=== PATIENT | female | born 1930 | race African-American/Black ===

== ENCOUNTER 2019-11-30 11:33 | Inpatient (IN) | payer OTHER ==
--- NOTE | 2019-11-30 12:48 | PDOC ---
History of Present Illness - General Chief Complaint: Wound Stated Complaint: Wound Time Seen by Provider: 11/30/19 12:15 - History of Present Illness Initial Comments: 11/30/19 12:45 Ms. Hill is an 88 yo female w/ pmh of dementia (patient not oriented at baseline ), HTN, HLD, schizophraenia, osteoporosis, arthritis, known pressure ulcer receiving Vancomycin outpatient with PICC line. Patient evaluated outpatient by Dr. Ritter and found to have large ulcer with foul smelling yellow drainage not improving. Patient transferred to hospital following discussion with niece for debridement. Patient otherwise DNR/DNI. Past History - Past Medical History Allergies/Adverse Reactions: Allergies Allergy/AdvReac Type Severity Reaction Status Date / Time Sulfa (Sulfonamide Allergy Verified 11/30/19 12:37 Antibiotics) COPD: No - Psycho Social/Smoking Cessation Hx Smoking History: Unknown if ever smoked Review of Systems - Review of Systems Comments:: 11/30/19 12:47 Unable to obtain further. *Physical Exam - Vital Signs Last Vital Signs Temp Pulse Resp BP Pulse Ox 98.9 F 101 H 20 160/96 100 11/30/19 11:39 11/30/19 11:39 11/30/19 11:39 11/30/19 11:39 11/30/19 11:39 - Physical Exam 11/30/19 12:48 GENERAL: +Patient obese; Not oriented; in no acute distress HEAD: No signs of trauma, normocephalic, atraumatic EYES: PERRLA, EOMI, sclera anicteric, conjunctiva clear ENT: Auricles normal inspection, nares patent, oropharynx clear without exudates. Moist mucosa NECK: Normal ROM, supple, no lymphadenopathy, JVD, or masses LUNGS: No distress, clear to auscultation bilaterally HEART: Regular rate and rhythm, normal S1 and S2, no murmurs, rubs or gallops, peripheral pulses normal and equal bilaterally. ABDOMEN: Soft, nontender, normoactive bowel sounds. No guarding, no rebound. No masses EXTREMITIES: +PICC line noted to RUE. Otherwise normal inspection, normal range of motion, no edema. No clubbing or cyanosis. NEUROLOGICAL: +Unable to assess further. SKIN: +Midline sacral ulcer stage IV. ED Treatment Course - LABORATORY CBC & Chemistry Diagram: 11/30/19 13:00 11/30/19 13:00 Medical Decision Making - Medical Decision Making 11/30/19 13:14 Ms. Hill is an 88 yo female w/ pmh as described who presents for evaluation of large sacral ulcer. Patient evaluated outpatient by vascular who coordinated transfer for debridement. Patient will be worked up for admission and procedure. 11/30/19 14:46 Patient admitted for further care. Discharge - Discharge Information Problems reviewed: Yes Clinical Impression/Diagnosis: Sacral decubitus ulcer Qualifiers: Pressure injury stage: unspecified pressure injury stage Qualified Code(s): L89.159 - Pressure ulcer of sacral region, unspecified stage - Admission Yes - Follow up/Referral Referrals: Connor Ritter DO [Primary Care Provider] - - Patient Discharge Instructions - Post Discharge Activity
--- NOTE | 2019-11-30 13:04 | PDOC ---
Documentation entered by Eloise Silva SCRIBE, acting as scribe for Rei Xie MD. Rei Xie MD: This documentation has been prepared by the Ricardo ramos Sammi, SCRIBE, under my direction and personally reviewed by me in its entirety. I confirm that the documentation accurately reflects all work, treatment, procedures, and medical decision making performed by me. Attending Attestation - Resident Resident Name: Narinder Gilliam - ED Attending Attestation I have performed the following: I have examined & evaluated the patient, The case was reviewed & discussed with the resident, I agree w/resident's findings & plan, Exceptions are as noted - HPI HPI: 11/30/19 13:14 The patient is an 88 year old female, PMH dementia, HTN, HLD, schizophrenia, osteoporosis, arthritis, who presents for evaluation of foul smelling ulder with discharge which is not improving with antibiotic treatment. - Physicial Exam PE: 11/30/19 12:59 Patient is awake, nonverbal, does not follow commands, vital signs are noted Normocephalic and atraumatic CTA RRR abd-sft, nt, nd + stage 4/unstageable sacral decub with dark colored foul smelling discharge - Medical Decision Making 11/30/19 13:03 88-year-old female with multiple comorbidities, advanced dementia, DNR/DNI presents with a worsening stage IV sacral decub with purulent foul-smelling discharge. Patient seen by Dr. Ritter vascular surgery and referred to the ER for debridement. Will obtain wound culture. We will continue with IV vancomycin. Will admit for vascular evaluation. Heart Score/ECG Review - ECG Impressions Comment:: 11/30/19 12:33 normal sinus rhythm normal ECG
[2019-11-30 13:23] LABS: BASO % 0.9 % (0-2.0); EOS % 0.4 % (0-4.5); HEMATOCRIT 38.1 % (32.4-45.2); HEMOGLOBIN 12.3 GM/dL (10.7-15.3); LYMPH % 13.5 % (8-40); MCH 24.9 pg (25.7-33.7); MCHC 32.4 g/dl (32.0-36.0); MEAN CELL VOLUME 76.8 fl (80-96); MEAN PLT VOLUME 7.9 fl (7.5-11.1); MONO % 5.7 % (3.8-10.2); NEUT % 79.5 % (42.8-82.8); PLATELET COUNT 360 K/MM3 (134-434); RBC 4.96 M/mm3 (3.60-5.2); RDW 15.6 % (11.6-15.6); WHITE BLOOD COUNT 10.8 K/mm3 (4.0-10.0)
[2019-11-30 13:36] LABS: INR 1.16 (0.83-1.09); PROTHROMBIN TIME (PATIENT) 13.7 SEC (9.7-13.0)
[2019-11-30 13:53] LABS: ALBUMIN 2.6 g/dl (3.4-5.0); BILIRUBIN,TOTAL 0.4 mg/dL (0.2-1); BLOOD UREA NITROGEN 14.8 mg/dL (7-18); CALCIUM 8.4 mg/dL (8.5-10.1); CREATININE 0.6 mg/dL (0.55-1.3); POTASSIUM 4.7 mmol/L (3.5-5.1); TOT PROT 6.5 g/dl (6.4-8.2)
--- NOTE | 2019-11-30 14:51 | EKG ---
Test Reason : Blood Pressure : / mmHG Vent. Rate : 092 BPM Atrial Rate : 092 BPM P-R Int : 138 ms QRS Dur : 074 ms QT Int : 348 ms P-R-T Axes : 063 011 067 degrees QTc Int : 430 ms POOR DATA QUALITY, INTERPRETATION MAY BE ADVERSELY AFFECTED NORMAL SINUS RHYTHM NORMAL ECG NO PREVIOUS ECGS AVAILABLE Confirmed by JUNE LOPEZ MD ([id number]) on 11/30/2019 2:51:03 PM Referred By: Confirmed By:JUNE LOPEZ MD
--- NOTE | 2019-11-30 15:23 | HP ---
CHIEF COMPLAINT: sacral ulcer PCP: Dr. Nichols HISTORY OF PRESENT ILLNESS: Pt. is an 88 y.o. F w/ PMHx. of Dementia(bed bound, non-verbal at baseline), HTN, HLD, schizophrenia, osteoporosis, arthritis, and decubitus ulcer presents for worsening of her decubitus ulcer. Pt. was seen by Dr. Ritter today and he recommended Pt. to be sent to the hospital for debridement. Pt. had known ulcer and was on Vancomycin Q12H since 11/25/19 for a 21 day course through her PICC line. Per discussion with Pt.s RN at [facility] and senior clinical project manager who states that Dr. Ritter talked to Pt.s niece prior to hospital transfer as Pt. is DNR/DNI and has advanced directives for limited intervention. Per report Pt. was not having any fever, chills or any reported symptoms apart from the foul smelling ulcer that got acute worse over the last 2 days. Per report wound cultures were performed at the facility but antibiotics were not changed. RN did not know the specific results. Pt.s last Vanco level 2 days ago was 15.2. Per RN Pt. has not received evening doses of Vancomycin since the . Pt. did not receive Vancomycin today. ER course was notable for: (1)Consult to Dr. Ritter (2)CBC, CMP, T&S (3) Recent Travel: No PAST MEDICAL HISTORY: As above PAST SURGICAL HISTORY: Unclear Social History: Smoking: Unclear Alcohol: Unclear Drugs: Unclear Allergies Sulfa (Sulfonamide Antibiotics) Allergy (Verified 11/30/19 12:37) HOME MEDICATIONS: Home Medications Medication Instructions Recorded Acetaminophen [Tylenol -] 1,000 mg PO DAILY 11/30/19 Acetaminophen [Tylenol -] 325 mg PO Q6H PRN 11/30/19 Ascorbate Calcium [Vitamin C] 500 mg PO DAILY 11/30/19 Calcium Carbonate/Vitamin D3 1 each PO DAILY 11/30/19 [Calcium 500 + Vit D Caplet] Collagenase Clostridium Hist. 1 applic TP DAILY 11/30/19 [Santyl] Latanoprost 0.005% Eye Drops 1 drop OU DAILY 11/30/19 [Xalatan 0.005% Eye Drops -] Multivitamin [One-Daily 1 each PO DAILY 11/30/19 Multi-Vitamin] Vancomycin HCl 1 gm IV BID 11/30/19 REVIEW OF SYSTEMS As above PHYSICAL EXAMINATION Vital Signs - 24 hr 11/30/19 11:39 Temperature 98.9 F Pulse Rate 101 H Respiratory 20 Rate Blood Pressure 160/96 O2 Sat by Pulse 100 Oximetry (%) GENERAL: Awake, alert, in mild distress. HEAD: Normal with no signs of gross trauma. EYES: Pupils equal, round and reactive to light, sclera anicteric, conjunctiva clear. EARS, NOSE, THROAT: Dry mucous membranes. LUNGS: Breath sounds equal, clear to auscultation bilaterally. No wheezes, and no crackles. No accessory muscle use. HEART: Regular rate and rhythm, normal S1 and S2 without murmur ABDOMEN: Soft, obese, nontender, not distended, normoactive bowel sounds, no guarding, no rebound, no masses. MUSCULOSKELETAL: Stage 4 decubitus ulcer, malodorous and purulent with wound dressing UPPER EXTREMITIES: warm, well-perfused. No cyanosis. No clubbing. No peripheral edema. LOWER EXTREMITIES: 2+ dorsal pedal pulses, warm, well-perfused. No calf tenderness. No peripheral edema. LLE contracted. Babinski Positive NEUROLOGICAL: Non-verbal, Gait not assessed PSYCHIATRIC: Unable to participate, blank stare, winces to pain SKIN: Warm, dry, normal turgor for age, skin break down on back in lumbar region Laboratory Results - last 24 hr 11/30/19 11/30/19 11/30/19 13:00 13:00 13:00 WBC 10.8 H RBC 4.96 Hgb 12.3 Hct 38.1 MCV 76.8 L MCH 24.9 L MCHC 32.4 RDW 15.6 Plt Count 360 MPV 7.9 Absolute Neuts (auto) 8.6 H Neutrophils % 79.5 Lymphocytes % 13.5 Monocytes % 5.7 Eosinophils % 0.4 Basophils % 0.9 Nucleated RBC % 0 PT with INR 13.70 H INR 1.16 H Sodium 140 Potassium 4.7 Chloride 109 H Carbon Dioxide 24 Anion Gap 7 L BUN 14.8 Creatinine 0.6 Est GFR (CKD-EPI)AfAm 95.66 Est GFR (CKD-EPI)NonAf 82.53 Random Glucose 162 H Calcium 8.4 L Total Bilirubin 0.4 AST 36 ALT 30 Alkaline Phosphatase 74 Total Protein 6.5 Albumin 2.6 L Blood Type Antibody Screen 11/30/19 11/30/19 13:00 13:38 WBC RBC Hgb Hct MCV MCH MCHC RDW Plt Count MPV Absolute Neuts (auto) Neutrophils % Lymphocytes % Monocytes % Eosinophils % Basophils % Nucleated RBC % PT with INR INR Sodium Potassium Chloride Carbon Dioxide Anion Gap BUN Creatinine Est GFR (CKD-EPI)AfAm Est GFR (CKD-EPI)NonAf Random Glucose Calcium Total Bilirubin AST ALT Alkaline Phosphatase Total Protein Albumin Blood Type Cancelled Cancelled Antibody Screen Cancelled Cancelled ASSESSMENT/PLAN: Pt. is an 88 y.o. F w/ PMHx. of Dementia(bed bound, non-verbal at baseline), HTN , HLD, schizophrenia, osteoporosis, arthritis, and decubitus ulcer presents for worsening of her decubitus ulcer. Pt. was seen by Dr. Ritter today and he recommended Pt. to be sent to the hospital for debridement. #Stage IV Decubitus Ulcer Wound Care consult to Dr. Ritter appreciated will resume Vancomycin 1Gm BID Last Level was 2 days ago: 15.2, f/u Rpt. level Will start Zosyn to broaden coverage ID Consult to Dr. Tobar appreciated c/w wound care with Santyl Dressing changes and Tylenol given prior to #FEN NS @ 75 monitor electrolytes and replete as needed NPO #DVT Ppx. Hep SQ BID Visit type - Emergency Visit Emergency Visit: Yes ED Registration Date: 11/30/19 Care time: The patient presented to the Emergency Department on the above date and was hospitalized for further evaluation of their emergent condition. - New Patient This patient is new to me today: Yes Date on this admission: 11/30/19 - Critical Care Critical Care patient: No ATTENDING PHYSICIAN STATEMENT I saw and evaluated the patient. I reviewed the resident's note and discussed the case with the resident. I agree with the resident's findings and plan as documented. SUBJECTIVE: OBJECTIVE: ASSESSMENT AND PLAN:
--- NOTE | 2019-11-30 15:58 | PN ---
Teaching Attending Note Name of Resident: Vaughn Branham ATTENDING PHYSICIAN STATEMENT I saw and evaluated the patient. I reviewed the resident's note and discussed the case with the resident. I agree with the resident's findings and plan as documented. SUBJECTIVE:Pt. is an 88 y.o. F w/ PMHx. of Dementia(bed bound, non-verbal at baseline), HTN, HLD, schizophrenia, osteoporosis, arthritis, and decubitus ulcer presents for worsening of her decubitus ulcer. Pt. was seen by Dr. Ritter today and he recommended Pt. to be sent to the hospital for debridement. pt has known ulcer and found to be worsening and wound infected and has been on the iv vanco, and wound got worse, and no improvement, so transferred for the debridement, no symptoms of infection fever , chills reported from the facility, Per report from facility wound cultures were performed at the facility but antibiotics were not changed. RN did not know the specific results. OBJECTIVE: appears comfortable , nad, alert awake, non verbal, withdraws to pain, no response to verbal commands, vss neck supple, no jvd cvs s1/s2/0 chest ctab abd benign ext no c/c/e sacral area stage 4. with foul smelling dc, and ASSESSMENT AND PLAN: stage 4 sacral wound was on vanco, will get the level, and will get the ID on the case, will start iv zosyn, and will fu with ID, will see the vascular surgery for the possible deberidement
[2019-11-30] MEDS ORDERED: PIPERACILLIN/TAZOB 4.5 GM 4.5 GM in DEXTROSE 5%-WATER 100 ML IVPB ONE (16:45)
[2019-11-30 17:10] LABS: PH,URINE 6.5 (5.0-8.0); URINE APPEARANCE CLEAR; URINE BILIRUBIN NEGATIVE (NEGATIVE); URINE COLOR YELLOW; URINE GLUCOSE (UA) NEGATIVE (NEGATIVE); URINE KETONE NEGATIVE (NEGATIVE); URINE LEUK ESTERASE NEGATIVE (NEGATIVE); URINE NITRITE NEGATIVE (NEGATIVE); URINE PROTEIN NEGATIVE (NEGATIVE)
[2019-11-30] MEDS ORDERED: PIPERACILLIN/TAZOBACTAM 4.5 GM VIAL IVPB ONE ×2 (17:47→23:04)
[2019-11-30] MEDS ORDERED: DEXTROSE 5%-WATER 100 ML IVPB ONE ×2 (17:47→23:04)
[2019-11-30] MEDS: SODIUM CHLORIDE 1,000 ML IV SCH (18:19)
[2019-11-30] MEDS: VANCOMYCIN 1 GM in D5W (PRE-DOCKED) 1,000 MG/250 ML IVPB SCH (18:20)
[2019-11-30] MEDS ORDERED: PT OWN MED DRAWER 7, Y5N ONE (18:37)
[2019-11-30 18:51] VITALS: BMI 34.0
[2019-11-30] MEDS: HEPARIN NA (PORCINE) 5,000 UNITS/ML 1ML VIAL SQ SCH (22:17)
[2019-11-30] MEDS: PIPERACILLIN/TAZOB 4.5 GM 4.5 GM in DEXTROSE 5%-WATER 100 ML IVPB SCH (23:09)
[2019-12-01] MEDS ORDERED: DEXTROSE 5%-WATER 100 ML IVPB ONE ×2 (04:54→10:35)
[2019-12-01] MEDS ORDERED: PIPERACILLIN/TAZOBACTAM 4.5 GM VIAL IVPB ONE ×2 (04:54→10:34)
[2019-12-01] MEDS: PIPERACILLIN/TAZOB 4.5 GM 4.5 GM in DEXTROSE 5%-WATER 100 ML IVPB SCH ×4 (05:17→15:11)
[2019-12-01] MEDS: HEPARIN NA (PORCINE) 5,000 UNITS/ML 1ML VIAL SQ SCH ×3 (05:58→21:44)
[2019-12-01] MEDS: VANCOMYCIN 1 GM in D5W (PRE-DOCKED) 1,000 MG/250 ML IVPB SCH ×3 (05:58→15:11)
--- NOTE | 2019-12-01 09:13 | PN ---
Teaching Attending Note Name of Resident: Sarah Juarez ATTENDING PHYSICIAN STATEMENT I saw and evaluated the patient. I reviewed the resident's note and discussed the case with the resident. I agree with the resident's findings and plan as documented. Seen and examined; please see resident note for further historical information. I personally verified all kaminski historical information and exam findings. Personally interpreted all imaging and diagnostics and reviewed appropriate consults. I reviewed all labs and vital signs as per resident note and EMR as documented. I agree with the above assessment and plan unless supplemented by myself in the following. No events reported overnight, patient remains nonverbal secondary to her dementia/schizoaffective disorder and cannot provide a meaningful history. Heart rate is within normal limits as is blood pressure and she is satting 95% on room air.This is her first visit to [facility] and we will obtain old records Could not obtain review of systems secondary to underlying clinical condition. OBJECTIVE: VS, labs, imaging reviewed NAD, AAO, resting comfortably in bed. RRR s1/2 no mgr Normal muscle tone, moves all 5 extremities with normal apparent strength Neck is supple, trachea midline, no cordell LN Lungs CTAB with sym expansion NT ND +BS no cordell organomegaly CN2-12 wnl; no FND NC AT EOMI PERRLA Normal mood, appropriate behavior, euthymic affect No skin breakdown or rashes noted EKG reviewed QTC is 430 with QRS duration 074, normal sinus rhythm. No previous EKGs to compare. Chest x-ray reviewed, no evidence of active pulmonary disease. Assessment and plan: Patient is a 88-year-old female who is bedbound and nonverbal at baseline secondary to her progressive dementia with underlying schizophrenia. She has hypertension, hyperlipidemia, osteoporosis, arthritis, and known decubitus ulcer presenting with worsening of the decubitus ulcer. She was sent in by Dr. Ritter for debridement. She has been on IV vancomycin and was reported to have systemic symptoms of illness such as fever and chills. She is stable overnight and will be going for debridement of her sacral decubitus ulcer, stage IV, with Dr. Ritter and the surgical team and continued on Vanco and Zosyn with ID consult. Pending outpatient/old records Patient is listed as a DNR/DNI but there is no most form completed. We will complete a most form today and have patient's healthcare proxy sign
[2019-12-01 09:47] LABS: BASO % 0.5 % (0-2.0); EOS % 0.6 % (0-4.5); HEMATOCRIT 32.5 % (32.4-45.2); HEMOGLOBIN 10.6 GM/dL (10.7-15.3); LYMPH % 12.8 % (8-40); MCHC 32.6 g/dl (32.0-36.0); MEAN CELL VOLUME 76.6 fl (80-96); MEAN PLT VOLUME 7.9 fl (7.5-11.1); MONO % 6.3 % (3.8-10.2); NEUT % 79.8 % (42.8-82.8); PLATELET COUNT 304 K/MM3 (134-434); RBC 4.24 M/mm3 (3.60-5.2); RDW 15.2 % (11.6-15.6); WHITE BLOOD COUNT 9.1 K/mm3 (4.0-10.0)
[2019-12-01 10:08] LABS: INR 1.22 (0.83-1.09); PROTHROMBIN TIME (PATIENT) 14.4 SEC (9.7-13.0)
[2019-12-01 10:11] LABS: ACTIVATED PTT 34.2 SECONDS (25.2-36.5)
[2019-12-01 10:26] LABS: ALBUMIN 2.2 g/dl (3.4-5.0); BILIRUBIN,TOTAL 0.6 mg/dL (0.2-1); CREATININE 0.6 mg/dL (0.55-1.3); MAGNESIUM 2.1 mg/dL (1.8-2.4); POTASSIUM 3.4 mmol/L (3.5-5.1); TOT PROT 5.5 g/dl (6.4-8.2)
--- NOTE | 2019-12-01 12:03 | SPA.PREOP ---
- PRE-OP NOTE Dx: sacral wound Planned Procedure: debridment of sacral wound Surgeon: Last Vital Signs Temp Pulse Resp BP Pulse Ox 99.1 F 93 H 20 122/82 95 12/01/19 06:19 12/01/19 06:19 12/01/19 06:19 12/01/19 06:19 11/30/19 21:00 Lab Results WBC 9.1 K/mm3 (4.0-10.0) 12/01/19 08:25 RBC 4.24 M/mm3 (3.60-5.2) 12/01/19 08:25 Hgb 10.6 GM/dL (10.7-15.3) L 12/01/19 08:25 Hct 32.5 % (32.4-45.2) 12/01/19 08:25 MCV 76.6 fl (80-96) L 12/01/19 08:25 MCHC 32.6 g/dl (32.0-36.0) 12/01/19 08:25 RDW 15.2 % (11.6-15.6) 12/01/19 08:25 Plt Count 304 K/MM3 (134-434) 12/01/19 08:25 Sodium 140 mmol/L (136-145) 12/01/19 08:25 Potassium 3.4 mmol/L (3.5-5.1) L 12/01/19 08:25 Chloride 106 mmol/L (98-107) 12/01/19 08:25 Carbon Dioxide 26 mmol/L (21-32) 12/01/19 08:25 Anion Gap 7 MMOL/L (8-16) L 12/01/19 08:25 BUN 11.0 mg/dL (7-18) 12/01/19 08:25 Creatinine 0.6 mg/dL (0.55-1.3) 12/01/19 08:25 Random Glucose 153 mg/dL (74-106) H 12/01/19 08:25 Calcium 8.0 mg/dL (8.5-10.1) L 12/01/19 08:25 Blood Type O POSITIVE 11/30/19 14:33 Antibody Screen Negative 11/30/19 14:33 INR 1.22 (0.83-1.09) H 12/01/19 08:25 PE: sacrum with foul odor/necrotic wound at the base A/P; 88 yo female seen by Dr. Ritter in the nursing facility and sent for sacral debridement Pt schedule for debridment 12/02 Npo after midnight D/w Dr. Ritter - ASSESSMENT/PLAN 1. Make NPO after midnight except po meds 2. GI/DVT PPX 3. Medical optimization / clearance 4. Consent to be obtained by surgeon after risks, benefits and alternatives discussed with patient and or Health Care Proxy.
--- NOTE | 2019-12-01 12:26 | PN ---
Progress Note (short form) - Note Progress Note: ID CONSULT DICTATED INFECTED DECUBITUS ULCER R/O SEPSIS SECONDARY TO DECUBITUS SOURCE AWAIT C/S SURGICAL EVALUATION VANCOMYCIN/ ZOSYN
--- NOTE | 2019-12-01 13:15 | CONS ---
INFECTIOUS DISEASE CONSULTATION DATE OF CONSULTATION: DATE OF DICTATION: 12/01/2019 HISTORY: The patient is an 88-year-old female who was evaluated for infected decubitus ulcer. History was obtained from the chart as she suffers from mental illness and dementia. She was at a nursing facility where she was receiving vancomycin for an infected sacral decubitus ulcer. No further details were available regarding cultures. She was seen by Surgery and was advised hospital admission for debridement and IV antibiotic therapy. She suffers from dementia and is not conversant. She was unable to offer any additional details. No reports of any associated fevers or chills. No culture results are available. PAST MEDICAL HISTORY: Positive for dementia, schizophrenia, hypertension, hyperlipidemia, osteoporosis, osteoarthritis. ALLERGIES: SULFA. MEDICATIONS: Include heparin, vancomycin, Zosyn. SOCIAL HISTORY: [facility] resident. Dependent in activities of daily living. SYSTEMS REVIEW: Neurologic: As per HPI. Cardiac: Negative chest pain or palpitations. Respiratory: Negative cough or sputum production. Gastrointestinal: Negative vomiting or diarrhea. Genitourinary: Negative for urinary tract infection. LABORATORY DATA: White count 9.1, hematocrit 32.5, platelet count 304, creatinine 0.6. Urinalysis negative. PHYSICAL EXAMINATION: General: She is awake. Not verbally responsive. Vital Signs: Temperature 99.1, blood pressure 122/82, pulse 93 regular, respirations 20 per minute. HEENT: Sclerae anicteric. Heart: Sounds S1, S2. Lungs: Air entry bilaterally. Abdomen: Soft and nontender. Extremities: Negative for edema. Stage 4 sacral decubitus ulcer with malodorous drainage. IMPRESSION: 1. Infected sacral decubitus ulcer. 2. Rule out sepsis secondary to decubitus source. PLAN: Wound debridement scheduled for tomorrow. Await cultures. Empiric antibiotic coverage with vancomycin and Zosyn. We will follow. Thank you for the kind referral. SIRI GALLARDO M.D. [id number]
[2019-12-01] MEDS: SODIUM CHLORIDE 1,000 ML IV SCH ×2 (15:14→17:57)
--- NOTE | 2019-12-01 16:48 | PN ---
Physical Exam: SUBJECTIVE: Patient seen and examined. Pt is nonverbal. Confirmed photo copy of MOLST form is in chart per nurse report to me. OBJECTIVE: Vital Signs Period Temp Pulse Resp BP Sys/Chapa Pulse Ox Last 24 Hr 98.3 F-99.1 F 77-93 18-20 113-156/57-82 95-98 GENERAL: The patient is awake, alert, and fully oriented, in no acute distress. NECK: supple. LUNGS: Breath sounds equal, clear to auscultation bilaterally, no wheezes, no crackles, no accessory muscle use. HEART: Regular rate and rhythm, S1, S2 without murmur, rub or gallop. ABDOMEN: Soft, nontender, nondistended EXTREMITIES: 2+ pulses, warm, well-perfused, no edema. NEUROLOGICAL: unable to cooperate PSYCH: Somnolent, non-verbal SKIN: sacral decub ulcer stage IV, dressing covering area. Laboratory Results - last 24 hr 11/30/19 12/01/19 12/01/19 15:45 08:25 08:25 WBC 9.1 RBC 4.24 Hgb 10.6 L Hct 32.5 MCV 76.6 L MCH 25.0 L MCHC 32.6 RDW 15.2 Plt Count 304 MPV 7.9 Absolute Neuts (auto) 7.2 Neutrophils % 79.8 Lymphocytes % 12.8 Monocytes % 6.3 Eosinophils % 0.6 Basophils % 0.5 Nucleated RBC % 0 PT with INR 14.40 H INR 1.22 H PTT (Actin FS) 34.2 Sodium Potassium Chloride Carbon Dioxide Anion Gap BUN Creatinine Est GFR (CKD-EPI)AfAm Est GFR (CKD-EPI)NonAf Random Glucose Calcium Phosphorus Magnesium Total Bilirubin AST ALT Alkaline Phosphatase Total Protein Albumin Urine Color Yellow Urine Appearance Clear Urine pH 6.5 Ur Specific [place] 1.018 Urine Protein Negative Urine Glucose (UA) Negative Urine Ketones Negative Urine Blood Negative Urine Nitrite Negative Urine Bilirubin Negative Urine Urobilinogen 1.0 Ur Leukocyte Esterase Negative 12/01/19 08:25 WBC RBC Hgb Hct MCV MCH MCHC RDW Plt Count MPV Absolute Neuts (auto) Neutrophils % Lymphocytes % Monocytes % Eosinophils % Basophils % Nucleated RBC % PT with INR INR PTT (Actin FS) Sodium 140 Potassium 3.4 L Chloride 106 Carbon Dioxide 26 Anion Gap 7 L BUN 11.0 Creatinine 0.6 Est GFR (CKD-EPI)AfAm 95.66 Est GFR (CKD-EPI)NonAf 82.53 Random Glucose 153 H Calcium 8.0 L Phosphorus 3.0 Magnesium 2.1 Total Bilirubin 0.6 AST 14 L ALT 21 Alkaline Phosphatase 58 Total Protein 5.5 L Albumin 2.2 L Urine Color Urine Appearance Urine pH Ur Specific [place] Urine Protein Urine Glucose (UA) Urine Ketones Urine Blood Urine Nitrite Urine Bilirubin Urine Urobilinogen Ur Leukocyte Esterase Active Medications Generic Name Dose Route Start Last Admin Trade Name Frenaheed PRN Reason Stop Dose Admin Heparin Sodium (Porcine) 5,000 unit 11/30/19 22:00 12/01/19 15:14 Heparin - SQ 5,000 unit TID TRISTEN Administration Sodium Chloride 1,000 mls @ 75 mls/hr 11/30/19 17:30 12/01/19 15:14 Normal Saline - IV 75 mls/hr ASDIR TRISTEN Administration Piperacillin Sod/Tazobactam 50 mls @ 100 mls/hr 12/01/19 18:00 Sod 3.375 gm/ Dextrose IVPB Q8H-IV TRISTEN Protocol Vancomycin HCl 1,000 mg in 250 mls @ 200 mls/hr 12/02/19 06:00 Vancomycin (Pre-Docked) IVPB Q24H TRISTEN Protocol ASSESSMENT/PLAN: Pt. is an 88 y.o. F w/ PMHx. of Dementia(bed bound, non-verbal at baseline), HTN , HLD, schizophrenia, osteoporosis, arthritis, and decubitus ulcer presents for worsening of her decubitus ulcer. Pt. was seen by Dr. Ritter today and he recommended Pt. to be sent to the hospital for debridement. #Stage IV Decubitus Ulcer - Wound Care consult to Dr. Ritter appreciated - will continue Vancomycin 1Gm BID, zosyn - Last Level was 2 days ago: 15.2, f/u Rpt. level - ID Consult to Dr. Tobar agreeing with primary team recs. - c/w wound care with Santyl Dressing changes and Tylenol given prior to debridement - Dr. Ritter will be doing surgical debridement tm - NPO after midnight #FEN NS @ 75 monitor electrolytes and replete as needed NPO #DVT Ppx. Hep SQ BID Visit type - Emergency Visit Emergency Visit: Yes ED Registration Date: 11/30/19 Care time: The patient presented to the Emergency Department on the above date and was hospitalized for further evaluation of their emergent condition. - New Patient This patient is new to me today: Yes Date on this admission: 12/01/19 - Critical Care Critical Care patient: No - Discharge Referral Referred to [facility] Med [facility] No ATTENDING PHYSICIAN STATEMENT I saw and evaluated the patient. I reviewed the resident's note and discussed the case with the resident. I agree with the resident's findings and plan as documented. SUBJECTIVE: OBJECTIVE: ASSESSMENT AND PLAN:
[2019-12-01] MEDS ORDERED: PIPERACILLIN/TAZOBACTAM 3.375 GM VIAL IVPB ONE (17:08)
[2019-12-01] MEDS ORDERED: DEXTROSE 5%-WATER - 50 ML IVPB ONE (17:08)
[2019-12-01] MEDS: PIPERACILLIN/TAZOB 3.375 GM 3.375 GM in DEXTROSE 5%-WATER - 50 ML IVPB SCH (17:58)
[2019-12-02] MEDS ORDERED: PIPERACILLIN/TAZOBACTAM 3.375 GM VIAL IVPB ONE ×3 (00:15→17:06)
[2019-12-02] MEDS ORDERED: DEXTROSE 5%-WATER - 50 ML IVPB ONE ×3 (00:16→17:06)
[2019-12-02] MEDS: PIPERACILLIN/TAZOB 3.375 GM 3.375 GM in DEXTROSE 5%-WATER - 50 ML IVPB SCH ×3 (01:14→17:16)
[2019-12-02] MEDS: SODIUM CHLORIDE 1,000 ML IV SCH ×2 (04:30→14:32)
[2019-12-02] MEDS: HEPARIN NA (PORCINE) 5,000 UNITS/ML 1ML VIAL SQ SCH ×2 (05:49→23:10)
[2019-12-02] MEDS ORDERED: VANCOMYCIN 1 GRAM (PRE-DOCKED) 1,000 MG/250 ML BAG IVPB SCH (06:00)
--- NOTE | 2019-12-02 07:02 | PN ---
Physical Exam: SUBJECTIVE: Patient seen and examined at bedside. Nonverbal. DNR/DNI per MOLST form copy in chart. OBJECTIVE: Vital Signs Period Temp Pulse Resp BP Sys/Chapa Pulse Ox Last 24 Hr 98.0 F-98.8 F 79-92 18-20 108-143/55-78 98-98 GENERAL: The patient is difficult to arouse, nonverbal NECK: supple. LUNGS: Breath sounds equal, clear to auscultation bilaterally, no wheezes, no crackles, no accessory muscle use. HEART: Regular rate and rhythm, S1, S2 without murmur, rub or gallop. ABDOMEN: Soft, nontender, nondistended. EXTREMITIES: 2+ pulses, warm, well-perfused, no edema. NEUROLOGICAL: unable to assess PSYCH: Normal mood, normal affect. SKIN: Sacral decub stage IV ulcer, dressing applied Laboratory Results - last 24 hr 12/01/19 12/01/19 12/01/19 08:25 08:25 08:25 WBC 9.1 RBC 4.24 Hgb 10.6 L Hct 32.5 MCV 76.6 L MCH 25.0 L MCHC 32.6 RDW 15.2 Plt Count 304 MPV 7.9 Absolute Neuts (auto) 7.2 Neutrophils % 79.8 Lymphocytes % 12.8 Monocytes % 6.3 Eosinophils % 0.6 Basophils % 0.5 Nucleated RBC % 0 PT with INR 14.40 H INR 1.22 H PTT (Actin FS) 34.2 Sodium 140 Potassium 3.4 L Chloride 106 Carbon Dioxide 26 Anion Gap 7 L BUN 11.0 Creatinine 0.6 Est GFR (CKD-EPI)AfAm 95.66 Est GFR (CKD-EPI)NonAf 82.53 Random Glucose 153 H Calcium 8.0 L Phosphorus 3.0 Magnesium 2.1 Total Bilirubin 0.6 AST 14 L ALT 21 Alkaline Phosphatase 58 Total Protein 5.5 L Albumin 2.2 L Active Medications Generic Name Dose Route Start Last Admin Trade Name Freq PRN Reason Stop Dose Admin Heparin Sodium (Porcine) 5,000 unit 11/30/19 22:00 12/02/19 05:49 Heparin - SQ Not Given TID TRISTEN Sodium Chloride 1,000 mls @ 75 mls/hr 11/30/19 17:30 12/02/19 04:30 Normal Saline - IV 75 mls/hr ASDIR TRISTEN Administration Piperacillin Sod/Tazobactam 50 mls @ 100 mls/hr 12/01/19 18:00 12/02/19 01:14 Sod 3.375 gm/ Dextrose IVPB 100 mls/hr Q8H-IV TRISTEN Administration Protocol Vancomycin HCl 1,000 mg in 250 mls @ 200 mls/hr 12/02/19 06:00 12/02/19 05:15 Vancomycin (Pre-Docked) IVPB 200 mls/hr Q24H TRISTEN Administration Protocol ASSESSMENT/PLAN: Pt. is an 88 y.o. F w/ PMHx. of Dementia(bed bound, non-verbal at baseline), HTN , HLD, schizophrenia, osteoporosis, arthritis, and decubitus ulcer presents for worsening of her decubitus ulcer. Pt. was seen by Dr. Ritter today and he recommended Pt. to be sent to the hospital for debridement. 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 Ritter appreciated - will continue Vancomycin 1Gm BID, zosyn - f/u Rpt. level - ID Consult to Dr. Tobar agreeing with primary team recs. - c/w wound care with Santyl Dressing changes and Tylenol given for any fevers - Dr. Ritter to do surgical debridement #FEN NS @ 75 monitor electrolytes and replete as needed NPO #DVT Ppx. Hep SQ BID Visit type - Emergency Visit Emergency Visit: Yes ED Registration Date: 11/30/19 Care time: The patient presented to the Emergency Department on the above date and was hospitalized for further evaluation of their emergent condition. - New Patient This patient is new to me today: No - Critical Care Critical Care patient: No - Discharge Referral Referred to [facility] No ATTENDING PHYSICIAN STATEMENT I saw and evaluated the patient. I reviewed the resident's note and discussed the case with the resident. I agree with the resident's findings and plan as documented. SUBJECTIVE: OBJECTIVE: ASSESSMENT AND PLAN:
[2019-12-02 08:46] LABS: BASO % 0.7 % (0-2.0); HEMATOCRIT 32.4 % (32.4-45.2); HEMOGLOBIN 10.5 GM/dL (10.7-15.3); MCH 25.1 pg (25.7-33.7); MCHC 32.5 g/dl (32.0-36.0); MEAN PLT VOLUME 8.1 fl (7.5-11.1); MONO % 7.8 % (3.8-10.2); NEUT % 73.5 % (42.8-82.8); PLATELET COUNT 292 K/MM3 (134-434); RBC 4.21 M/mm3 (3.60-5.2); WHITE BLOOD COUNT 9.3 K/mm3 (4.0-10.0)
[2019-12-02 09:18] LABS: ALBUMIN 2.1 g/dl (3.4-5.0); BILIRUBIN,TOTAL 0.6 mg/dL (0.2-1); BLOOD UREA NITROGEN 8.7 mg/dL (7-18); CALCIUM 8.3 mg/dL (8.5-10.1); CREATININE 0.6 mg/dL (0.55-1.3); POTASSIUM 3.5 mmol/L (3.5-5.1); TOT PROT 5.6 g/dl (6.4-8.2)
[2019-12-02] MEDS ORDERED: LIDOCAINE HCL 1%, 10 MG/ML (20ML VIAL) ONE ×2 (10:51→11:43)
[2019-12-02] MEDS ORDERED: MIDAZOLAM HCL 2 MG/2 ML SINGLE DOSE VIAL ONE (11:24)
--- NOTE | 2019-12-02 11:33 | PN ---
Teaching Attending Note Name of Resident: Corey Camilo ATTENDING PHYSICIAN STATEMENT I saw and evaluated the patient. I reviewed the resident's note and discussed the case with the resident. I agree with the resident's findings and plan as documented. Seen and examined; please see resident note for further historical information. I personally verified all [place] historical information and exam findings. Personally interpreted all imaging and diagnostics and reviewed appropriate consults. I reviewed all labs and vital signs as per resident note and EMR as documented. I agree with the above assessment and plan unless supplemented by myself in the following. Patient is a 88-year-old female who is bedbound and nonverbal at baseline secondary to her progressive dementia with underlying schizophrenia. She has hypertension, hyperlipidemia, osteoporosis, arthritis, and known decubitus ulcer presenting with worsening of the decubitus ulcer. She was sent in by Dr. Ritter for debridement. She has been on IV vancomycin and was reported to have systemic symptoms of illness such as fever and chills. She is stable overnight and will be going for debridement of her sacral decubitus ulcer, stage IV, with Dr. Ritter and the surgical team and continued on Vanco and Zosyn with ID consult. 10 item review of systems completed and is negative aside from as discussed in the subjective data in my own/the resident documentation. VS, labs, imaging reviewed NAD, AAOx0, resting comfortably in bed. Functional quadriplegia appreciated RRR s1/2 no mgr Normal muscle tone, moves all 5 extremities with normal apparent strength Neck is supple, trachea midline, no cordell LN Lungs CTAB with sym expansion NT ND +BS no cordell organomegaly CN2-12 wnl; no FND NC AT EOMI PERRLA Normal mood, appropriate behavior, euthymic affect No skin breakdown or rashes noted OR records reviewed, wound care recommendations appreciated Assessment and plan: Patient is improved and doing well postoperatively, remains on antibiotics per ID, wound care instructions appreciated. Microbiology is growing out 2 gram- negative bacilli they are non-lactose fermenting and 1 lactose fermenting GNB with no blood or urine growth. No white count, chemistries within normal limits , will work with social work for discharge planning. I agree with resident assessment and plan as documented unless supplemented by myself.
[2019-12-02] MEDS ORDERED: LIDOCAINE HCL 1%, 10 MG/ML (20ML VIAL) NR ONE (11:40)
--- NOTE | 2019-12-02 11:58 | OP ---
Operative Note - Note: Operative Date: 12/02/19 Pre-Operative Diagnosis: STage 4 necrotic sacral ulcer Operation: Excisional Debridement sacral ulcer - skin, subcutanous tissue , muscle. Findings: necrotic tissue sent to path Post-Operative Diagnosis: Same as Pre-op Surgeon: Connor Ritter Anesthesia: Fractional Estimated Blood Loss (mls): 10 Operative Report Dictated: Yes
[2019-12-02] MEDS ORDERED: LACTATED RINGERS SOLUTION 1,000 ML IV SCH (12:15)
--- NOTE | 2019-12-02 18:45 | PN ---
Progress Note, Physician History of Present Illness: AWAKE. NOT CONVERSANT NO ACUTE DISTRESS S/P DEBRIDEMENT, SACRAL DECUBITUS AFEBRILE WBC IMPROVED - Current Medication List Current Medications: Active Medications Fentanyl (Sublimaze Injection -) 25 mcg IVPUSH [id number] PRN PRN Reason: PAIN-PACU ORDER X 4 DOSES ONLY Stop: 12/03/19 12:05 Heparin Sodium (Porcine) (Heparin -) 5,000 unit SQ TID TRISTEN Lactated Ringer's (Lactated Ringers Solution) 1,000 mls @ 75 mls/hr IV ASDIR TRISTEN Sodium Chloride (Normal Saline -) 1,000 mls @ 75 mls/hr IV ASDIR TRISTEN Last Admin: 12/02/19 14:32 Dose: 75 mls/hr Vancomycin HCl (Vancomycin (Pre-Docked)) 1,000 mg in 250 mls @ 200 mls/hr IVPB Q24H TRISTEN; Protocol Piperacillin Sod/Tazobactam (Sod 3.375 gm/ Dextrose) 50 mls @ 100 mls/hr IVPB Q8H-IV TRISTEN; Protocol Last Admin: 12/02/19 17:16 Dose: 100 mls/hr - Objective Vital Signs: Vital Signs Temperature 98.8 F 12/02/19 18:10 Pulse Rate 69 12/02/19 18:10 Respiratory Rate 20 12/02/19 18:10 Blood Pressure 145/67 12/02/19 18:10 O2 Sat by Pulse Oximetry (%) 98 12/02/19 13:30 Constitutional: Yes: No Distress Eyes: Yes: Conjunctiva Clear Cardiovascular: Yes: Regular Rate and Rhythm, S1, S2 Respiratory: Yes: Diminished Gastrointestinal: Yes: Normal Bowel Sounds, Soft Integumentary: Yes: Other (DRESSING IN PLACE) Labs: CBC, BMP 12/02/19 07:10 12/02/19 07:10 INR, PTT INR 1.22 (0.83-1.09) H 12/01/19 08:25 Assessment/Plan S/P DEBRIDEMENT SACRAL DECUBITUS R/O SEPSIS SECONDARY TO DECUBITUS ULCER AWAIT C/S CONTINUE ZOSYN/VANCOMYCIN LOCAL WOUND CARE
[2019-12-03] MEDS ORDERED: PIPERACILLIN/TAZOBACTAM 3.375 GM VIAL IVPB ONE ×3 (01:02→17:47)
[2019-12-03] MEDS ORDERED: DEXTROSE 5%-WATER - 50 ML IVPB ONE ×3 (01:03→17:47)
[2019-12-03] MEDS: PIPERACILLIN/TAZOB 3.375 GM 3.375 GM in DEXTROSE 5%-WATER - 50 ML IVPB SCH ×3 (01:24→17:51)
[2019-12-03] MEDS: SODIUM CHLORIDE 1,000 ML IV SCH (06:02)
[2019-12-03] MEDS: VANCOMYCIN 1 GRAM (PRE-DOCKED) 1,000 MG/250 ML BAG IVPB SCH (06:03)
[2019-12-03] MEDS: HEPARIN NA (PORCINE) 5,000 UNITS/ML 1ML VIAL SQ SCH ×4 (06:03→22:11)
[2019-12-03 07:31] LABS: BASO % 0.5 % (0-2.0); EOS % 1.3 % (0-4.5); HEMOGLOBIN 10.7 GM/dL (10.7-15.3); LYMPH % 14.5 % (8-40); MCH 24.8 pg (25.7-33.7); MCHC 32.4 g/dl (32.0-36.0); MEAN CELL VOLUME 76.7 fl (80-96); MEAN PLT VOLUME 7.7 fl (7.5-11.1); MONO % 6.7 % (3.8-10.2); PLATELET COUNT 318 K/MM3 (134-434); RBC 4.31 M/mm3 (3.60-5.2); RDW 15.6 % (11.6-15.6); WHITE BLOOD COUNT 9.5 K/mm3 (4.0-10.0)
[2019-12-03 08:05] LABS: ALBUMIN 2.2 g/dl (3.4-5.0); BILIRUBIN,TOTAL 0.6 mg/dL (0.2-1); BLOOD UREA NITROGEN 10.8 mg/dL (7-18); CALCIUM 8.5 mg/dL (8.5-10.1); CREATININE 0.7 mg/dL (0.55-1.3); POTASSIUM 3.5 mmol/L (3.5-5.1); TOT PROT 5.7 g/dl (6.4-8.2)
--- NOTE | 2019-12-03 09:25 | PN ---
Physical Exam: SUBJECTIVE: Patient seen and examined; discussed with RN. Pending pathology. No issues reported overnight Cannot obtain complete ROS 2/2 advanced dementia. OBJECTIVE: Vital Signs Period Temp Pulse Resp BP Sys/Chapa Pulse Ox Last 24 Hr 97.9 F-98.8 F 58-84 16-20 90-156/50-88 95-100 GENERAL: The patient is awake, alert, and nonverbal/nonorientated, in no acute distress. HEAD: Normal with no signs of trauma. EYES: PERRL, extraocular movements intact, sclera anicteric, conjunctiva clear. No ptosis. ENT: Ears normal, nares patent, oropharynx clear without exudates, moist mucous membranes. NECK: Trachea midline, full range of motion, supple. LUNGS: Breath sounds equal, clear to auscultation bilaterally, no wheezes, no crackles, no accessory muscle use. HEART: Regular rate and rhythm, S1, S2 without murmur, rub or gallop. ABDOMEN: Soft, nontender, nondistended, normoactive bowel sounds, no guarding, no rebound, no hepatosplenomegaly, no masses. EXTREMITIES: 2+ pulses, warm, well-perfused, no edema. NEUROLOGICAL: Cranial nerves II through XII grossly intact. Normal speech, gait not observed. PSYCH: Normal mood, normal affect. SKIN: Warm, dry, normal turgor, no rashes or lesions noted Laboratory Results - last 24 hr 12/03/19 12/03/19 06:10 06:10 WBC 9.5 RBC 4.31 Hgb 10.7 Hct 33.0 MCV 76.7 L MCH 24.8 L MCHC 32.4 RDW 15.6 Plt Count 318 MPV 7.7 Absolute Neuts (auto) 7.4 Neutrophils % 77.0 Lymphocytes % 14.5 Monocytes % 6.7 Eosinophils % 1.3 Basophils % 0.5 Nucleated RBC % 0 Sodium 146 H Potassium 3.5 Chloride 114 H Carbon Dioxide 26 Anion Gap 6 L BUN 10.8 Creatinine 0.7 Est GFR (CKD-EPI)AfAm 90.93 Est GFR (CKD-EPI)NonAf 78.45 Random Glucose 108 H Calcium 8.5 Total Bilirubin 0.6 AST 15 ALT 17 Alkaline Phosphatase 57 Total Protein 5.7 L Albumin 2.2 L Active Medications Generic Name Dose Route Start Last Admin Trade Name Freq PRN Reason Stop Dose Admin Fentanyl 25 mcg 12/02/19 12:06 Sublimaze Injection - IVPUSH 12/03/19 12:05 [id number] PRN PAIN-PACU ORDER X 4 DOSES ONLY Heparin Sodium (Porcine) 5,000 unit 12/02/19 22:00 12/03/19 06:03 Heparin - SQ 5,000 unit TID TRISTEN Administration Sodium Chloride 1,000 mls @ 75 mls/hr 12/02/19 14:08 12/03/19 06:02 Normal Saline - IV 75 mls/hr ASDIR TRISTEN Administration Vancomycin HCl 1,000 mg in 250 mls @ 200 mls/hr 12/03/19 06:00 12/03/19 06:03 Vancomycin (Pre-Docked) IVPB 200 mls/hr Q24H TRISTEN Administration Protocol Piperacillin Sod/Tazobactam 50 mls @ 100 mls/hr 12/02/19 18:00 12/03/19 01:24 Sod 3.375 gm/ Dextrose IVPB 100 mls/hr Q8H-IV TRISTEN Administration Protocol ASSESSMENT/PLAN: Sepsis is noted to be improved with the patient having improved white count. Slightly hypernatremic and hyperchloremic, will change fluids to LR. Sepsis secondary to cellulitis due to stage IV decubitus ulcer Severe protein calorie malnutrition Advanced dementia, nonverbal at baseline Hypertension Hyperlipidemia Schizophrenia; no issues with agitation Osteoporosis Osteoarthritis Functional Quadraplegia Hyperchloremia, Hyponatremia; mild. Changing IVF recheck BMP in AM. Pending pathology on the necrotic tissue that was taken at the debridement yesterday. Infectious disease continues to follow and recommends continuing with Zosyn and vancomycin alongside wound care. They remain at their neurologic baseline. Will initiate discharge planning. They are a resident of [facility]. We will elucidate the final course of antibiotics required. Likely discharge within 72 hours depending on facility acceptance and trajectory of antibiotics. DNR/I MOLST Completed in chart; HCP info updated. Visit type - Emergency Visit Emergency Visit: No - New Patient This patient is new to me today: No - Critical Care Critical Care patient: No
[2019-12-03] MEDS: LACTATED RINGERS SOLUTION 1,000 ML/1,000 ML INFUS.BAG IV SCH (11:23)
--- NOTE | 2019-12-03 12:23 | PN ---
Progress Note (short form) - Note Progress Note: Anesthesiologist post op note POD#1 S/P I&D of decubitus ulcer under MAC anesthesia . VSS. No apparent post anesthesia complications.
[2019-12-03] MEDS ORDERED: PT OWN MED DRAWER 7, Y5N ONE ×3 (13:13→23:20)
[2019-12-03] MEDS: LATANOPROST 0.005% OPHTH SOLN 2.5ML BOTTLE OU SCH (22:11)
[2019-12-04] MEDS ORDERED: PIPERACILLIN/TAZOBACTAM 3.375 GM VIAL IVPB ONE ×3 (02:11→17:18)
[2019-12-04] MEDS ORDERED: DEXTROSE 5%-WATER - 50 ML IVPB ONE ×3 (02:11→17:18)
[2019-12-04] MEDS: PIPERACILLIN/TAZOB 3.375 GM 3.375 GM in DEXTROSE 5%-WATER - 50 ML IVPB SCH ×3 (02:37→17:47)
[2019-12-04] MEDS: LACTATED RINGERS SOLUTION 1,000 ML/1,000 ML INFUS.BAG IV SCH ×2 (04:45→12:18)
[2019-12-04] MEDS: VANCOMYCIN 1 GRAM (PRE-DOCKED) 1,000 MG/250 ML BAG IVPB SCH (05:57)
[2019-12-04] MEDS: HEPARIN NA (PORCINE) 5,000 UNITS/ML 1ML VIAL SQ SCH ×3 (05:58→22:58)
[2019-12-04 07:21] LABS: BASO % 0.7 % (0-2.0); EOS % 1.1 % (0-4.5); HEMATOCRIT 32.1 % (32.4-45.2); HEMOGLOBIN 10.5 GM/dL (10.7-15.3); LYMPH % 14.9 % (8-40); MCH 25.2 pg (25.7-33.7); MCHC 32.8 g/dl (32.0-36.0); MEAN PLT VOLUME 7.7 fl (7.5-11.1); MONO % 7.1 % (3.8-10.2); NEUT % 76.2 % (42.8-82.8); PLATELET COUNT 297 K/MM3 (134-434); RBC 4.17 M/mm3 (3.60-5.2); RDW 15.5 % (11.6-15.6); WHITE BLOOD COUNT 10.3 K/mm3 (4.0-10.0)
[2019-12-04 07:46] LABS: BLOOD UREA NITROGEN 7.9 mg/dL (7-18); CREATININE 0.6 mg/dL (0.55-1.3); POTASSIUM 3.3 mmol/L (3.5-5.1); PREALBUMIN 9.6 mg/dl (20-40)
[2019-12-04] MEDS ORDERED: DOCUSATE NA 100 MG/10 ML UNIT-DOSE CUPS PO PRN (08:16)
[2019-12-04 08:30] LABS: ERYTHROCYTE SEDIMENTATION RATE 64 mm/hr (0-30)
[2019-12-04] MEDS ORDERED: POTASSIUM CHLORIDE TABS 20 MEQ TABLET.ER (FP) PO ONE (09:00)
--- NOTE | 2019-12-04 09:41 | PN ---
Physical Exam: SUBJECTIVE: Patient seen and examined. No acute events overnight. POD#2 of sacral wound debridement. OBJECTIVE: Vital Signs Period Temp Pulse Resp BP Sys/Chapa Pulse Ox Last 24 Hr 98.8 F-100.1 F 69-83 18-20 98-151/54-76 97 GENERAL: awake, nonverbal NECK: supple. LUNGS: Breath sounds equal, clear to auscultation bilaterally, no wheezes, no crackles, no accessory muscle use. HEART: Regular rate and rhythm, S1, S2 without murmur, rub or gallop. ABDOMEN: Soft, nontender, nondistended. EXTREMITIES: 2+ pulses, warm, well-perfused, no edema. NEUROLOGICAL: unable to assess PSYCH: Normal mood, normal affect. SKIN: Sacral decub stage IV ulcer, dressing applied Laboratory Results - last 24 hr 12/04/19 12/04/19 12/04/19 06:50 06:50 06:50 WBC 10.3 H RBC 4.17 Hgb 10.5 L Hct 32.1 L MCV 77.0 L MCH 25.2 L MCHC 32.8 RDW 15.5 Plt Count 297 MPV 7.7 Absolute Neuts (auto) 7.8 Neutrophils % 76.2 Lymphocytes % 14.9 Monocytes % 7.1 Eosinophils % 1.1 Basophils % 0.7 Nucleated RBC % 0 ESR 64 H Sodium 145 Potassium 3.3 L Chloride 114 H Carbon Dioxide 26 Anion Gap 5 L BUN 7.9 Creatinine 0.6 Est GFR (CKD-EPI)AfAm 94.99 Est GFR (CKD-EPI)NonAf 81.95 Random Glucose 107 H Calcium 8.0 L Iron 35 L TIBC 218 L Iron Saturation 16 L Unsaturated IBC 183 L C-Reactive Protein 4.4 H Prealbumin 9.6 L Active Medications Generic Name Dose Route Start Last Admin Trade Name Freq PRN Reason Stop Dose Admin Acetaminophen 650 mg 12/03/19 14:56 Tylenol - PO Q6H PRN PAIN Docusate Sodium 100 mg 12/04/19 08:16 Colace Liquid - PO DAILY PRN CONSTIPATION Ferrous Sulfate 300 mg 12/04/19 10:00 Feosol PO BIDWM TRISTEN Heparin Sodium (Porcine) 5,000 unit 12/02/19 22:00 12/04/19 05:58 Heparin - SQ 5,000 unit TID TRISTEN Administration Vancomycin HCl 1,000 mg in 250 mls @ 200 mls/hr 12/03/19 06:00 12/04/19 05:57 Vancomycin (Pre-Docked) IVPB 200 mls/hr Q24H TRISTEN Administration Protocol Piperacillin Sod/Tazobactam 50 mls @ 100 mls/hr 12/02/19 18:00 12/04/19 02:37 Sod 3.375 gm/ Dextrose IVPB 100 mls/hr Q8H-IV TRISTEN Administration Protocol Lactated Ringer's 1,000 ml in 1,000 mls @ 60 mls/hr 12/03/19 11:15 12/04/19 04:45 Lactated Ringers Solution IV 60 mls/hr ASDIR TRISTEN Administration Latanoprost 1 drop 12/03/19 22:00 12/03/19 22:11 Xalatan 0.005% Eye Drops - OU 1 drop HS TRISTEN Administration ASSESSMENT/PLAN: 88 y/o/f with PMHx of Dementia (bed bound, non-verbal at baseline), HTN, HLD, schizophrenia, osteoporosis, arthritis, and decubitus ulcer presents for worsening of her decubitus ulcer. POD#2 of sacral wound debridement. 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 Ritter) - POD#2 Excisional Debridement sacral ulcer - skin, subcutanous tissue, muscle - necrotic tissue sent to path lab, awaiting results - Continue Vancomycin 1Gm BID, Zosyn - f/u Rpt. level - ID Consulted (Dr. Tobar) - c/w wound care with Santyl Dressing changes and Tylenol given for any fevers - Blood culture, urine cultures negative to date - Wound culture growing Non Lactose fermenting GNB x2, lactose fermenting negative bacilli x1. pending sensitivities #Iron Deficiency Anemia - Iron studies completed, Iron low - Started on Ferrous Sulfate 300mg PO BIDWM #FEN - LR @ 60mls/hr - monitor electrolytes and replete as needed - Sodium controlled diet - Hypokalemia noted, repleted with Kdur 40meq #DVT Ppx. - Hep SQ BID #Dispo - pending path report for necrotic tissue - Patient comes from [facility] in [place], will return when ready for D/C with proper abx course Visit type - Emergency Visit Emergency Visit: Yes ED Registration Date: 11/30/19 Care time: The patient presented to the Emergency Department on the above date and was hospitalized for further evaluation of their emergent condition. - New Patient This patient is new to me today: Yes Date on this admission: 12/04/19 - Critical Care Critical Care patient: No ATTENDING PHYSICIAN STATEMENT I saw and evaluated the patient. I reviewed the resident's note and discussed the case with the resident. I agree with the resident's findings and plan as documented. SUBJECTIVE: OBJECTIVE: ASSESSMENT AND PLAN:
[2019-12-04] MEDS: ACETAMINOPHEN 325 MG TABLET (FP) PO PRN (12:18)
[2019-12-04] MEDS: FERROUS SO4 300 MG/5 ML ORAL SOLN UNIT DOSE CUPS PO SCH ×2 (12:18→17:48)
[2019-12-04] MEDS: LATANOPROST 0.005% OPHTH SOLN 2.5ML BOTTLE OU SCH (22:59)
[2019-12-05] MEDS ORDERED: DEXTROSE 5%-WATER - 50 ML IVPB ONE ×3 (01:25→18:08)
[2019-12-05] MEDS ORDERED: PIPERACILLIN/TAZOBACTAM 3.375 GM VIAL IVPB ONE ×3 (01:25→18:08)
[2019-12-05] MEDS: PIPERACILLIN/TAZOB 3.375 GM 3.375 GM in DEXTROSE 5%-WATER - 50 ML IVPB SCH ×3 (02:04→18:12)
[2019-12-05 05:50] LABS: HEMATOCRIT 31.1 % (32.4-45.2); HEMOGLOBIN 10.1 GM/dL (10.7-15.3); MCH 24.7 pg (25.7-33.7); MCHC 32.4 g/dl (32.0-36.0); MEAN CELL VOLUME 76.3 fl (80-96); MEAN PLT VOLUME 7.5 fl (7.5-11.1); PLATELET COUNT 288 K/MM3 (134-434); RBC 4.07 M/mm3 (3.60-5.2); RDW 15.3 % (11.6-15.6); WHITE BLOOD COUNT 11.3 K/mm3 (4.0-10.0)
[2019-12-05 06:18] LABS: ALBUMIN 2.1 g/dl (3.4-5.0); BILIRUBIN,TOTAL 0.3 mg/dL (0.2-1); BLOOD UREA NITROGEN 8.9 mg/dL (7-18); CALCIUM 7.9 mg/dL (8.5-10.1); CREATININE 0.6 mg/dL (0.55-1.3); POTASSIUM 3.4 mmol/L (3.5-5.1); TOT PROT 5.3 g/dl (6.4-8.2)
[2019-12-05] MEDS: HEPARIN NA (PORCINE) 5,000 UNITS/ML 1ML VIAL SQ SCH ×3 (07:12→22:12)
[2019-12-05] MEDS ORDERED: POTASSIUM CHLORIDE TABS 20 MEQ TABLET.ER (FP) PO ONE (07:30)
[2019-12-05] MEDS: VANCOMYCIN 1 GRAM (PRE-DOCKED) 1,000 MG/250 ML BAG IVPB SCH (07:49)
[2019-12-05] MEDS ORDERED: PT OWN MED DRAWER 7, Y5N ONE ×2 (10:57→18:15)
[2019-12-05] MEDS: ZINC SULFATE 220 MG CAPSULE (FP) PO SCH (11:44)
[2019-12-05] MEDS: ASCORBIC ACID 250 MG TABLET (FP) PO SCH (11:44)
[2019-12-05] MEDS: FERROUS SO4 300 MG/5 ML ORAL SOLN UNIT DOSE CUPS PO SCH ×2 (11:44→18:16)
[2019-12-05] MEDS: MULTIVITAMINS (DAILY MVI) TABLET (FP) PO SCH (11:45)
[2019-12-05] MEDS: LACTATED RINGERS SOLUTION 1,000 ML/1,000 ML INFUS.BAG IV SCH (13:33)
--- NOTE | 2019-12-05 15:57 | PN ---
Progress Note (short form) - Note Progress Note: 89yo F s/p sacral ulcer debridement. Pt seen and examined at bedside. Pt is nonverbal so unable to give any history. Last Vital Signs Temp Pulse Resp BP Pulse Ox 98.8 F 57 L 20 153/76 98 12/05/19 14:00 12/05/19 14:00 12/05/19 14:00 12/05/19 14:00 12/04/19 21:00 CBC, BMP 12/05/19 05:35 12/05/19 05:35 PE: Gen: A&O x 3 Resp; breathing comfortably Back: sacral decub stage 4 ulcer 8cm x 8cm x 6cm with 2-3 cm undermining, clean serous drainage, no erythema. Problem List - Problems (1) Sacral decubitus ulcer Assessment/Plan: Plan -pt will have vac dressing placed by nursing with black foam -recommend changing MWF -pt should follow up with wound care clinic as outpatient. Please contact vascular team if any acute changes. Code(s): L89.159 - PRESSURE ULCER OF SACRAL REGION, UNSPECIFIED STAGE Qualifiers: Pressure injury stage: unspecified pressure injury stage Qualified Code(s) : L89.159 - Pressure ulcer of sacral region, unspecified stage
--- NOTE | 2019-12-05 15:57 | PN ---
Physical Exam: SUBJECTIVE: Patient seen and examined. No acute events overnight. POD#3 from sacral ulcer debridement. OBJECTIVE: Vital Signs Period Temp Pulse Resp BP Sys/Chapa Pulse Ox Last 24 Hr 98.4 F-99.1 F 57-78 18-20 126-153/50-82 98 GENERAL: awake, nonverbal NECK: supple, trachea midline LUNGS: Breath sounds equal, clear to auscultation bilaterally, no wheezes, no crackles, no accessory muscle use. HEART: Regular rate and rhythm, S1, S2 without murmur, rub or gallop. ABDOMEN: Soft, nontender, nondistended. EXTREMITIES: 2+ pulses, warm, well-perfused, no edema. NEUROLOGICAL: unable to assess PSYCH: Normal mood, normal affect. SKIN: Sacral decub stage IV ulcer, dressing applied Laboratory Results - last 24 hr 12/05/19 12/05/19 12/05/19 05:35 05:35 05:35 WBC 11.3 H RBC 4.07 Hgb 10.1 L Hct 31.1 L MCV 76.3 L MCH 24.7 L MCHC 32.4 RDW 15.3 Plt Count 288 MPV 7.5 Sodium 145 Potassium 3.4 L Chloride 113 H Carbon Dioxide 26 Anion Gap 5 L BUN 8.9 Creatinine 0.6 Est GFR (CKD-EPI)AfAm 94.99 Est GFR (CKD-EPI)NonAf 81.95 Random Glucose 111 H Calcium 7.9 L Magnesium 2.0 Total Bilirubin 0.3 AST 12 L ALT 18 Alkaline Phosphatase 53 Total Protein 5.3 L Albumin 2.1 L Vancomycin Pre-Dose 10.0 L Active Medications Generic Name Dose Route Start Last Admin Trade Name Freq PRN Reason Stop Dose Admin Acetaminophen 650 mg 12/03/19 14:56 12/04/19 12:18 Tylenol - PO 650 mg Q6H PRN Administration PAIN Amino Acids 30 ml 12/05/19 17:30 Prosource No Carb Liquid Pkt PO BID@0800,1730 TRISTEN Ascorbic Acid 250 mg 12/05/19 10:00 12/05/19 11:44 Vitamin C - PO 250 mg DAILY TRISTEN Administration Docusate Sodium 100 mg 12/04/19 08:16 12/04/19 12:16 Colace Liquid - PO 100 mg DAILY PRN Administration CONSTIPATION Ferrous Sulfate 300 mg 12/04/19 10:00 12/05/19 11:44 Feosol PO 300 mg BIDWM TRISTEN Administration Heparin Sodium (Porcine) 5,000 unit 12/02/19 22:00 12/05/19 13:33 Heparin - SQ 5,000 unit TID TRISTEN Administration Vancomycin HCl 1,000 mg in 250 mls @ 200 mls/hr 12/03/19 06:00 12/05/19 07:49 Vancomycin (Pre-Docked) IVPB 200 mls/hr Q24H TRISTEN Administration Protocol Piperacillin Sod/Tazobactam 50 mls @ 100 mls/hr 12/02/19 18:00 12/05/19 11:48 Sod 3.375 gm/ Dextrose IVPB 100 mls/hr Q8H-IV TRISTEN Administration Protocol Lactated Ringer's 1,000 ml in 1,000 mls @ 60 mls/hr 12/03/19 11:15 12/05/19 13:33 Lactated Ringers Solution IV 60 mls/hr ASDIR TRISTEN Administration Latanoprost 1 drop 12/03/19 22:00 12/04/19 22:59 Xalatan 0.005% Eye Drops - OU 1 drop HS TRISTEN Administration Multivitamins/Minerals/Vitamin C 1 tab 12/05/19 10:00 12/05/19 11:45 Tab-A-Vit - PO 1 tab DAILY TRISTEN Administration Zinc Sulfate 220 mg 12/05/19 10:00 12/05/19 11:44 Orazinc - PO 220 mg DAILY TRISTEN Administration ASSESSMENT/PLAN: 88 y/o/f with PMHx of Dementia (bed bound, non-verbal at baseline), HTN, HLD, schizophrenia, osteoporosis, arthritis, and decubitus ulcer presents for worsening of her decubitus ulcer. POD#3 of sacral wound debridement. 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 Ritter) - POD#3 Excisional Debridement sacral ulcer - skin, subcutanous tissue, muscle - necrotic tissue sent to path lab, awaiting results -> per path lab results should be available tomorrow - pt will have vac dressing placed by nursing with black foam - recommend changing MWF - pt should follow up with wound care clinic as outpatient. - Continue Vancomycin 1Gm BID, Zosyn - ID Consulted (Dr. Tobar) - c/w wound care with Santyl Dressing changes and Tylenol given for any fevers - Blood culture, urine cultures negative to date - Wound culture growing Non Lactose fermenting GNB x2, lactose fermenting negative bacilli x1. pending sensitivities #Iron Deficiency Anemia - Iron studies completed, Iron low - Started on Ferrous Sulfate 300mg PO BIDWM #FEN - LR @ 60mls/hr - monitor electrolytes and replete as needed - Sodium controlled diet - Hypokalemia noted, repleted with Kdur 40meq #DVT Ppx. - Hep SQ BID #Dispo - pending path report for necrotic tissue -> per path lab results should be available tomorrow - Patient comes from [facility] in [place], will return when ready for D/C with proper abx course Visit type - Emergency Visit Emergency Visit: Yes ED Registration Date: 11/30/19 Care time: The patient presented to the Emergency Department on the above date and was hospitalized for further evaluation of their emergent condition. - New Patient This patient is new to me today: No - Critical Care Critical Care patient: No ATTENDING PHYSICIAN STATEMENT I saw and evaluated the patient. I reviewed the resident's note and discussed the case with the resident. I agree with the resident's findings and plan as documented. SUBJECTIVE: OBJECTIVE: ASSESSMENT AND PLAN:
[2019-12-05] MEDS: AMINO ACIDS/PROTEIN HYDROLYS 30 ML LIQUID.PKT PO SCH (18:12)
[2019-12-05] MEDS: ACETAMINOPHEN 325 MG TABLET (FP) PO PRN (18:13)
[2019-12-05] MEDS: LATANOPROST 0.005% OPHTH SOLN 2.5ML BOTTLE OU SCH (22:12)
[2019-12-06] MEDS ORDERED: PIPERACILLIN/TAZOBACTAM 3.375 GM VIAL IVPB ONE ×3 (02:40→17:58)
[2019-12-06] MEDS ORDERED: DEXTROSE 5%-WATER - 50 ML IVPB ONE ×3 (02:40→17:58)
[2019-12-06] MEDS: PIPERACILLIN/TAZOB 3.375 GM 3.375 GM in DEXTROSE 5%-WATER - 50 ML IVPB SCH ×3 (03:15→18:01)
[2019-12-06] MEDS: VANCOMYCIN 1 GRAM (PRE-DOCKED) 1,000 MG/250 ML BAG IVPB SCH (06:56)
[2019-12-06] MEDS: HEPARIN NA (PORCINE) 5,000 UNITS/ML 1ML VIAL SQ SCH ×3 (06:56→21:46)
[2019-12-06 08:03] LABS: HEMATOCRIT 31.5 % (32.4-45.2); HEMOGLOBIN 10.3 GM/dL (10.7-15.3); MCH 24.7 pg (25.7-33.7); MCHC 32.6 g/dl (32.0-36.0); MEAN CELL VOLUME 75.9 fl (80-96); PLATELET COUNT 295 K/MM3 (134-434); RBC 4.15 M/mm3 (3.60-5.2); RDW 15.8 % (11.6-15.6); WHITE BLOOD COUNT 11.3 K/mm3 (4.0-10.0)
[2019-12-06 08:33] LABS: BLOOD UREA NITROGEN 8.2 mg/dL (7-18); CALCIUM 8.5 mg/dL (8.5-10.1); CREATININE 0.7 mg/dL (0.55-1.3); POTASSIUM 3.3 mmol/L (3.5-5.1)
[2019-12-06] MEDS ORDERED: POTASSIUM CHLORIDE TABS 20 MEQ TABLET.ER (FP) PO ONE (10:00)
[2019-12-06] MEDS: AMINO ACIDS/PROTEIN HYDROLYS 30 ML LIQUID.PKT PO SCH ×2 (10:10→18:01)
[2019-12-06] MEDS: FERROUS SO4 300 MG/5 ML ORAL SOLN UNIT DOSE CUPS PO SCH ×2 (10:10→18:02)
[2019-12-06] MEDS: ZINC SULFATE 220 MG CAPSULE (FP) PO SCH (10:11)
[2019-12-06] MEDS: MULTIVITAMINS (DAILY MVI) TABLET (FP) PO SCH (10:11)
[2019-12-06] MEDS: ASCORBIC ACID 250 MG TABLET (FP) PO SCH (10:11)
[2019-12-06] MEDS ORDERED: POTASSIUM CHLORIDE ORAL LIQUID 20 MEQ/15 ML PO ONE (10:12)
[2019-12-06] MEDS: LACTATED RINGERS SOLUTION 1,000 ML/1,000 ML INFUS.BAG IV SCH (12:27)
--- NOTE | 2019-12-06 17:09 | PN ---
Progress Note, Physician History of Present Illness: AWAKE. NOT CONVERSANT NO ACUTE DISTRESS S/P DEBRIDEMENT, SACRAL DECUBITUS VAC IN PLACE LOW GRADE TEMP WBC IMPROVED - Current Medication List Current Medications: Active Medications Acetaminophen (Tylenol -) 650 mg PO Q6H PRN PRN Reason: PAIN Last Admin: 12/05/19 18:13 Dose: 650 mg Amino Acids (Prosource No Carb Liquid Pkt) 30 ml PO BID@0800,1730 [facility] Last Admin: 12/06/19 10:10 Dose: 30 ml Ascorbic Acid (Vitamin C -) 250 mg PO DAILY [facility] Last Admin: 12/06/19 10:11 Dose: 250 mg Docusate Sodium (Colace Liquid -) 100 mg PO DAILY PRN PRN Reason: CONSTIPATION Last Admin: 12/04/19 12:16 Dose: 100 mg Ferrous Sulfate (Feosol) 300 mg PO BIDWM [facility] Last Admin: 12/06/19 10:10 Dose: 300 mg Heparin Sodium (Porcine) (Heparin -) 5,000 unit SQ TID [facility] Last Admin: 12/06/19 15:03 Dose: 5,000 unit Vancomycin HCl (Vancomycin (Pre-Docked)) 1,000 mg in 250 mls @ 200 mls/hr IVPB Q24H [facility]; Protocol Last Admin: 12/06/19 06:56 Dose: 200 mls/hr Piperacillin Sod/Tazobactam (Sod 3.375 gm/ Dextrose) 50 mls @ 100 mls/hr IVPB Q8H-IV TRISTEN; Protocol Last Admin: 12/06/19 10:11 Dose: 100 mls/hr Lactated Ringer's (Lactated Ringers Solution) 1,000 ml in 1,000 mls @ 60 mls/ hr IV ASDIR [facility] Last Admin: 12/06/19 12:27 Dose: Not Given Latanoprost (Xalatan 0.005% Eye Drops -) 1 drop OU HS [facility] Last Admin: 12/05/19 22:12 Dose: 1 drop Multivitamins/Minerals/Vitamin C (Tab-A-Vit -) 1 tab PO DAILY [facility] Last Admin: 12/06/19 10:11 Dose: 1 tab Zinc Sulfate (Orazinc -) 220 mg PO DAILY [facility] Last Admin: 12/06/19 10:11 Dose: 220 mg - Objective Vital Signs: Vital Signs Temperature 100.3 F H 12/06/19 13:00 Pulse Rate 81 12/06/19 13:00 Respiratory Rate 20 12/06/19 13:00 Blood Pressure 120/41 L 12/06/19 13:00 O2 Sat by Pulse Oximetry (%) 98 12/05/19 21:00 Constitutional: Yes: No Distress Cardiovascular: Yes: Regular Rate and Rhythm, S1, S2 Respiratory: Yes: CTA Bilaterally Gastrointestinal: Yes: Normal Bowel Sounds, Soft. No: Tenderness Edema: Yes Edema: LLE: 1+, RLE: 1+ Labs: CBC, BMP 12/06/19 07:30 12/06/19 07:30 INR, PTT INR 1.22 (0.83-1.09) H 12/01/19 08:25 Assessment/Plan S/P DEBRIDEMENT SACRAL DECUBITUS R/O SEPSIS SECONDARY TO DECUBITUS ULCER AWAIT FINAL C/S CONTINUE ZOSYN LOCAL WOUND CARE
--- NOTE | 2019-12-06 18:08 | PN ---
Teaching Attending Note Name of Resident: Kalen Hannah ATTENDING PHYSICIAN STATEMENT I saw and evaluated the patient. I reviewed the resident's note and discussed the case with the resident. I agree with the resident's findings and plan as documented. SUBJECTIVE: Non-verbal, unable to participate in medical interview OBJECTIVE: Afebrile, Hemodynamically Stable. Last Vital Signs Temp Pulse Resp BP Pulse Ox 100.3 F H 81 20 120/41 L 98 12/06/19 13:00 12/06/19 13:00 12/06/19 13:00 12/06/19 13:00 12/05/19 21:00 HEENT - Atraumatic Heart - S1, S2, RRR Lungs - clear to auscultation Abdomen - High BMI. Soft, non-tender. Bowel Sounds normal. Extremities - no calf tenderness, no edema. RUE PICC. Laboratory Results - last 24 hr 12/06/19 12/06/19 07:30 07:30 WBC 11.3 H RBC 4.15 Hgb 10.3 L Hct 31.5 L MCV 75.9 L MCH 24.7 L MCHC 32.6 RDW 15.8 H Plt Count 295 MPV 8.0 Sodium 147 H Potassium 3.3 L Chloride 113 H Carbon Dioxide 29 Anion Gap 5 L BUN 8.2 Creatinine 0.7 Est GFR (CKD-EPI)AfAm 90.29 Est GFR (CKD-EPI)NonAf 77.90 Random Glucose 113 H Calcium 8.5 Current Medications Generic Name Dose Route Start Last Admin Trade Name Freq PRN Reason Stop Dose Admin Acetaminophen 650 mg 12/03/19 14:56 12/05/19 18:13 Tylenol - PO 650 mg Q6H PRN Administration PAIN Amino Acids 30 ml 12/05/19 17:30 12/06/19 10:10 Prosource No Carb Liquid Pkt PO 30 ml BID@0800,1730 TRIST[facility] Administration Ascorbic Acid 250 mg 12/05/19 10:12/06/19 10:11 Vitamin C - PO 250 mg DAILY [facility] Administration Docusate Sodium 100 mg 12/04/19 08:16 12/04/19 12:16 Colace Liquid - PO 100 mg DAILY PRN Administration CONSTIPATION Ferrous Sulfate 300 mg 12/04/19 10:00 12/06/19 10:10 Feosol PO 300 mg BIDWM [facility]ST[facility] Administration Heparin Sodium (Porcine) 5,000 unit 12/02/19 22:00 12/06/19 15:03 Heparin - SQ 5,000 unit TID TRIST[facility] Administration Piperacillin Sod/Tazobactam 50 mls @ 100 mls/hr 12/02/19 18:00 12/06/19 10:11 Sod 3.375 gm/ Dextrose IVPB 100 mls/hr Q8H-IV TRISTEN Administration Protocol Lactated Ringer's 1,000 ml in 1,000 mls @ 60 mls/hr 12/03/19 11:15 12/06/19 12:27 Lactated Ringers Solution IV Not Given ASDIR TRISTEN Latanoprost 1 drop 12/03/19 22:00 12/05/19 22:12 Xalatan 0.005% Eye Drops - OU 1 drop HS [facility] Administration Multivitamins/Minerals/Vitamin C 1 tab 12/05/19 10:00 12/06/19 10:11 Tab-A-Vit - PO 1 tab DAILY [facility] Administration Zinc Sulfate 220 mg 12/05/19 10:00 12/06/19 10:11 Orazinc - PO 220 mg DAILY [facility] Administration Home Medications Medication Instructions Recorded Acetaminophen [Tylenol -] 1,000 mg PO DAILY 11/30/19 Acetaminophen [Tylenol -] 325 mg PO Q6H PRN 11/30/19 Ascorbate Calcium [Vitamin C] 500 mg PO DAILY 11/30/19 Calcium Carbonate/Vitamin D3 1 each PO DAILY 11/30/19 [Calcium 500 + Vit D Caplet] Collagenase Clostridium Hist. 1 applic TP DAILY 11/30/19 [Santyl] Latanoprost 0.005% Eye Drops 1 drop OU DAILY 11/30/19 [Xalatan 0.005% Eye Drops -] Multivitamin [One-Daily 1 each PO DAILY 11/30/19 Multi-Vitamin] Vancomycin HCl 1 gm IV BID 11/30/19 ASSESSMENT AND PLAN: 88 year old female with history of Advanced Dementia (bed bound, non-verbal at baseline), HTN, HLD, Schizophrenia, Osteoporosis, and sacral decubitus ulcer presents with ulcer infection. 1. Acute Infection Stage IV Decubitus Ulcer, Tmax 100.4 POD 4 s/p excisional debridement Wound Cx LFNB/NLFNB Continue IV Zosyn via R PICC pending final ID and sensitivity ID following. 2. Functional Quadriplegia sec to Advanced Dementia Fully dependent for ADLs Institutional Resident. 3. Chronic Anemia, iron deficiency - continue Ferrous Sulfate supplementation. 4. Hypokalemia - repleted. DVT Px - Heparin SQ
--- NOTE | 2019-12-06 19:03 | PN ---
Physical Exam: SUBJECTIVE: Patient seen and examined at bedside. No acute events. OBJECTIVE: Vital Signs Period Temp Pulse Resp BP Sys/Chapa Pulse Ox Last 24 Hr 98.5 F-100.3 F 64-82 18-20 120-149/41-79 98 GENERAL: The patient is awake, nonverbal. HEAD: Normal with no signs of trauma. NECK: supple. LUNGS: Breath sounds equal, clear to auscultation bilaterally, no wheezes, no crackles, no accessory muscle use. HEART: Regular rate and rhythm, S1, S2 without murmur, rub or gallop. ABDOMEN: Soft, nontender, nondistended EXTREMITIES: 2+ pulses, no edema. NEUROLOGICAL: nonverbal at baseline SKIN: Warm, dry, wound vac on sacrum draining serosanguinous fluid. Laboratory Results - last 24 hr 12/06/19 12/06/19 07:30 07:30 WBC 11.3 H RBC 4.15 Hgb 10.3 L Hct 31.5 L MCV 75.9 L MCH 24.7 L MCHC 32.6 RDW 15.8 H Plt Count 295 MPV 8.0 Sodium 147 H Potassium 3.3 L Chloride 113 H Carbon Dioxide 29 Anion Gap 5 L BUN 8.2 Creatinine 0.7 Est GFR (CKD-EPI)AfAm 90.29 Est GFR (CKD-EPI)NonAf 77.90 Random Glucose 113 H Calcium 8.5 Active Medications Generic Name Dose Route Start Last Admin Trade Name Freq PRN Reason Stop Dose Admin Acetaminophen 650 mg 12/03/19 14:56 12/05/19 18:13 Tylenol - PO 650 mg Q6H PRN Administration PAIN Amino Acids 30 ml 12/05/19 17:30 12/06/19 18:01 Prosource No Carb Liquid Pkt PO 30 ml BID@0800,1730 [facility] Administration Ascorbic Acid 250 mg 12/05/19 10:00 12/06/19 10:11 Vitamin C - PO 250 mg DAILY [facility] Administration Docusate Sodium 100 mg 12/04/19 08:16 12/04/19 12:16 Colace Liquid - PO 100 mg DAILY PRN Administration CONSTIPATION Ferrous Sulfate 300 mg 12/04/19 10:00 12/06/19 18:02 Feosol PO 300 mg BIDWM [facility]ST[facility] Administration Heparin Sodium (Porcine) 5,000 unit 12/02/19 22:00 12/06/19 15:03 Heparin - SQ 5,000 unit TID [facility] Administration Piperacillin Sod/Tazobactam 50 mls @ 100 mls/hr 12/02/19 18:00 12/06/19 18:01 Sod 3.375 gm/ Dextrose IVPB 100 mls/hr Q8H-IV [facility]ST[facility] Administration Protocol Lactated Ringer's 1,000 ml in 1,000 mls @ 60 mls/hr 12/03/19 11:15 12/06/19 12:27 Lactated Ringers Solution IV Not Given ASDIR [facility] Latanoprost 1 drop 12/03/19 22:00 12/05/19 22:12 Xalatan 0.005% Eye Drops - OU 1 drop HS [facility] Administration Multivitamins/Minerals/Vitamin C 1 tab 12/05/19 10:00 12/06/19 10:11 Tab-A-Vit - PO 1 tab DAILY [facility] Administration Zinc Sulfate 220 mg 12/05/19 10:00 12/06/19 10:11 Orazinc - PO 220 mg DAILY [facility] Administration ASSESSMENT/PLAN: 88 y/o/f with PMHx of Dementia (bed bound, non-verbal at baseline), HTN, HLD, schizophrenia, osteoporosis, arthritis, and decubitus ulcer presents for worsening of her decubitus ulcer. POD#3 of sacral wound debridement. 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 Ritter) - POD#4 Excisional Debridement sacral ulcer - skin, subcutanous tissue, muscle - necrotic tissue sent to path lab, awaiting results - pt with vac dressing placed by nursing with black foam - recommend changing MWF - pt should follow up with wound care clinic as outpatient. - Continue Vancomycin 1Gm BID, Zosyn - ID Consulted (Dr. Tobar) - c/w wound care with Santyl Dressing changes and Tylenol given for any fevers - Blood culture, urine cultures negative to date - Wound culture growing Non Lactose fermenting GNB x2, lactose fermenting negative bacilli x1. pending sensitivities. will d/w Dr. Tobar regarding correction abx to go home with. #Iron Deficiency Anemia - Iron studies completed, Iron low - Started on Ferrous Sulfate 300mg PO BIDWM #FEN - LR @ 60mls/hr - monitor electrolytes and replete as needed - Sodium controlled diet - Hypokalemia noted, repleted with Kdur 40meq #DVT Ppx. - Hep SQ BID #Dispo - pending path report for necrotic tissue -> per path lab results should be available tomorrow - Patient comes from [facility] in [place], will return when ready for D/C with proper abx course Visit type - Emergency Visit Emergency Visit: Yes ED Registration Date: 11/30/19 Care time: The patient presented to the Emergency Department on the above date and was hospitalized for further evaluation of their emergent condition. - New Patient This patient is new to me today: No - Critical Care Critical Care patient: No - Discharge Referral Referred to [facility] Med P.C[facility] No ATTENDING PHYSICIAN STATEMENT I saw and evaluated the patient. I reviewed the resident's note and discussed the case with the resident. I agree with the resident's findings and plan as documented. SUBJECTIVE: OBJECTIVE: ASSESSMENT AND PLAN:
[2019-12-06] MEDS: LATANOPROST 0.005% OPHTH SOLN 2.5ML BOTTLE OU SCH (21:47)
[2019-12-07] MEDS ORDERED: DEXTROSE 5%-WATER - 50 ML IVPB ONE ×3 (02:14→17:10)
[2019-12-07] MEDS ORDERED: PIPERACILLIN/TAZOBACTAM 3.375 GM VIAL IVPB ONE ×3 (02:14→17:10)
[2019-12-07] MEDS: PIPERACILLIN/TAZOB 3.375 GM 3.375 GM in DEXTROSE 5%-WATER - 50 ML IVPB SCH ×3 (02:21→17:14)
[2019-12-07] MEDS: HEPARIN NA (PORCINE) 5,000 UNITS/ML 1ML VIAL SQ SCH ×3 (06:03→23:18)
[2019-12-07] MEDS ORDERED: PT OWN MED DRAWER 7, Y5N ONE ×3 (08:31→17:10)
[2019-12-07] MEDS: AMINO ACIDS/PROTEIN HYDROLYS 30 ML LIQUID.PKT PO SCH ×2 (08:43→17:14)
[2019-12-07] MEDS: FERROUS SO4 300 MG/5 ML ORAL SOLN UNIT DOSE CUPS PO SCH ×2 (10:08→17:14)
[2019-12-07] MEDS: ASCORBIC ACID 250 MG TABLET (FP) PO SCH (10:09)
[2019-12-07] MEDS: ZINC SULFATE 220 MG CAPSULE (FP) PO SCH (10:09)
[2019-12-07] MEDS: MULTIVITAMINS (DAILY MVI) TABLET (FP) PO SCH (10:09)
[2019-12-07] MEDS: ACETAMINOPHEN 325 MG TABLET (FP) PO PRN (11:26)
[2019-12-07] MEDS: LACTATED RINGERS SOLUTION 1,000 ML/1,000 ML INFUS.BAG IV SCH (12:35)
--- NOTE | 2019-12-07 12:46 | PN ---
Progress Note, Physician History of Present Illness: AWAKE. NOT CONVERSANT NO ACUTE DISTRESS S/P DEBRIDEMENT, SACRAL DECUBITUS VAC IN PLACE LOW GRADE TEMP NOTED WBC SL ELEVATED - Current Medication List Current Medications: Active Medications Acetaminophen (Tylenol -) 650 mg PO Q6H PRN PRN Reason: PAIN Last Admin: 12/07/19 11:26 Dose: 650 mg Amino Acids (Prosource No Carb Liquid Pkt) 30 ml PO BID@0800,1730 [facility]S [facility]CLUDE 234 BEDS AT THE [facility] Last Admin: 12/07/19 08:43 Dose: 30 ml Ascorbic Acid (Vitamin C -) 250 mg PO DAILY [facility]S INCLUDE 234 BEDS AT THE [facility] Last Admin: 12/07/19 10:09 Dose: 250 mg Docusate Sodium (Colace Liquid -) 100 mg PO DAILY PRN PRN Reason: CONSTIPATION Last Admin: 12/04/19 12:16 Dose: 100 mg Ferrous Sulfate (Feosol) 300 mg PO BIDWM COUNTS INCLUDE 234 BEDS AT THE [facility] Last Admin: 12/07/19 10:08 Dose: 300 mg Heparin Sodium (Porcine) (Heparin -) 5,000 unit SQ TID [facility]S INCLUDE 234 BEDS AT THE [facility] Last Admin: 12/07/19 06:03 Dose: 5,000 unit Piperacillin Sod/Tazobactam (Sod 3.375 gm/ Dextrose) 50 mls @ 100 mls/hr IVPB Q8H-IV TRISTEN; Protocol Last Admin: 12/07/19 10:09 Dose: 100 mls/hr Lactated Ringer's (Lactated Ringers Solution) 1,000 ml in 1,000 mls @ 60 mls/ hr IV ASDIR COUNTS INCLUDE 234 BEDS AT THE [facility] Last Admin: 12/07/19 12:35 Dose: Not Given Latanoprost (Xalatan 0.005% Eye Drops -) 1 drop OU HS [facility]S INCLUDE 234 BEDS AT THE [facility] Last Admin: 12/06/19 21:47 Dose: 1 drop Multivitamins/Minerals/Vitamin C (Tab-A-Vit -) 1 tab PO DAILY [facility]S [facility]CLUDE 234 BEDS AT THE [facility] Last Admin: 12/07/19 10:09 Dose: 1 tab Zinc Sulfate (Orazinc -) 220 mg PO DAILY [facility]S INCLUDE 234 BEDS AT THE [facility] Last Admin: 12/07/19 10:09 Dose: 220 mg - Objective Vital Signs: Vital Signs Temperature 98.2 F 12/07/19 12:12 Pulse Rate 76 12/07/19 12:12 Respiratory Rate 20 12/07/19 12:12 Blood Pressure 143/49 L 12/07/19 12:12 O2 Sat by Pulse Oximetry (%) 98 12/06/19 09:00 Constitutional: Yes: No Distress Cardiovascular: Yes: Regular Rate and Rhythm, S1, S2 Respiratory: Yes: CTA Bilaterally Gastrointestinal: Yes: Normal Bowel Sounds, Soft. No: Tenderness Edema: Yes Integumentary: Yes: Other (VAC IN PLACE, SACRUM) Labs: CBC, BMP 12/06/19 07:30 12/06/19 07:30 INR, PTT INR 1.22 (0.83-1.09) H 12/01/19 08:25 Assessment/Plan S/P DEBRIDEMENT SACRAL DECUBITUS MAY SUBSTITUTE AUGMENTIN 875MG PO BID X 7D LOCAL WOUND CARE
--- NOTE | 2019-12-07 14:11 | DS ---
Physical Exam: SUBJECTIVE: Patient seen and examined at bedside. No acute events other than 100.3 temp at 3 pm yesterday. OBJECTIVE: Vital Signs Period Temp Pulse Resp BP Sys/Chapa Pulse Ox Last 24 Hr 98.2 F-99.9 F 69-82 18-20 110-143/49-73 PHYSICAL EXAM GENERAL: The patient is awake, nonverbal LUNGS: Breath sounds equal, clear to auscultation bilaterally, no wheezes, no crackles, no accessory muscle use. HEART: Regular rate and rhythm, S1, S2 without murmur, rub or gallop. ABDOMEN: Soft, nontender, nondistended EXTREMITIES: 2+ pulses, warm, well-perfused, no edema. NEUROLOGICAL: Cranial nerves II through XII grossly intact. Normal speech, gait not observed. PSYCH: Normal mood, normal affect. SKIN: stage IV sacral decub attached to wound vac LABS HOSPITAL COURSE: Date of Admission:11/30/19 Pt was admitted for debridement of stage IV sacral decub ulcer and for abx management. Pt came in with a PICC line already on vancomycin. She was debrided on 12/02/[address] Ritter. Pt was continued on vanco and added zosyn for a total of 6 days per ID (Amadou). Pt's wound cultures were contaminated and no sensitivities were obtained. Pt is nonverbal at baseline but will return to [facility] with PO augmentin 875 BID x 7 days per ID recs. She should follow up with wound care, ID, and PCP as per D/C plan. She needs a repeat cbc to be done on thursday as her wbc was still slightly elevated on discharge. She will start using ferrous sulfate and colace for her new home meds. Date of Discharge: 12/07/19 <Corey Camilo - Last Filed: 12/07/19 15:26> Physical Exam: SUBJECTIVE: Patient seen and examined OBJECTIVE: Vital Signs Period Temp Pulse Resp BP Sys/Chapa Pulse Ox Last 24 Hr 98.2 F-99.9 F 67-77 18-20 110-147/46-73 PHYSICAL EXAM GENERAL: The patient is awake, alert, and fully oriented, in no acute distress. HEAD: Normal with no signs of trauma. EYES: PERRL, extraocular movements intact, sclera anicteric, conjunctiva clear. ENT: Ears normal, nares patent, oropharynx clear without exudates, moist mucous membranes. NECK: Trachea midline, full range of motion, supple. LUNGS: Breath sounds equal, clear to auscultation bilaterally, no wheezes, no crackles, no accessory muscle use. HEART: Regular rate and rhythm, S1, S2 without murmur, rub or gallop. ABDOMEN: Soft, nontender, nondistended, normoactive bowel sounds, no guarding, no rebound, no hepatosplenomegaly, no masses. EXTREMITIES: 2+ pulses, warm, well-perfused, no edema. NEUROLOGICAL: Cranial nerves II through XII grossly intact. Normal speech, gait not observed. PSYCH: Normal mood, normal affect. SKIN: Warm, dry, normal turgor, no rashes or lesions noted. LABS Laboratory Results - last 24 hr 12/07/19 12/07/19 13:24 13:24 WBC 13.2 H RBC 4.24 Hgb 10.4 L Hct 32.6 MCV 77.0 L MCH 24.5 L MCHC 31.8 L RDW 15.6 Plt Count 298 MPV 8.0 Absolute Neuts (auto) 11.3 H Neutrophils % 85.3 H Lymphocytes % 8.0 D Monocytes % 4.4 Eosinophils % 1.8 Basophils % 0.5 Nucleated RBC % 0 Sodium 146 H Potassium 3.8 Chloride 113 H Carbon Dioxide 27 Anion Gap 6 L BUN 13.4 Creatinine 0.7 Est GFR (CKD-EPI)AfAm 90.29 Est GFR (CKD-EPI)NonAf 77.90 Random Glucose 124 H Calcium 8.4 L Discharge Medications Medication Instructions Recorded Acetaminophen [Tylenol 1,000 mg PO DAILY 11/30/19 .Extra-Strength -] Acetaminophen [Tylenol .Regular 325 mg PO Q6H PRN 11/30/19 Strength -] Ascorbate Calcium [Vitamin C] 500 mg PO DAILY 11/30/19 Calcium Carbonate/Vitamin D3 1 each PO DAILY 11/30/19 [Calcium 500 + Vit D Caplet] Collagenase Clostridium Hist. 1 applic TP DAILY 11/30/19 [Santyl] Latanoprost 0.005% Eye Drops 1 drop OU DAILY 11/30/19 [Xalatan 0.005% Eye Drops -] Multivitamin [One-Daily 1 each PO DAILY 11/30/19 Multi-Vitamin] Amino Acids/Protein Hydrolys 30 ml PO BID@0800,1730 packet 12/07/19 [Prosource No Carb Liquid Pkt] Amoxicillin/Potassium Clav 1 each PO BID 7 Days #14 tablet 12/07/19 [Augmentin 875-125 Tablet] Ascorbic Acid [Vitamin C -] 250 mg PO DAILY tablet 12/07/19 Docusate Liquid [Colace Liquid -] 100 mg PO DAILY PRN ud 12/07/19 Ferrous Sulfate [Feosol] 300 mg PO DAILY #0 udc 12/07/19 Zinc Sulfate [Orazinc -] 220 mg PO DAILY capsule 12/07/19 Date of Admission:11/30/19 Date of Discharge: 12/07/19 Minutes to complete discharge: 40 <Pritesh Andre - Last Filed: 01/23/20 14:55> Discharge Summary Problems reviewed: Yes - Home Medications Comprehensive Discharge Medication List: Ambulatory Orders Acetaminophen [Tylenol .Extra-Strength -] 1,000 mg PO DAILY 11/30/19 Acetaminophen [Tylenol .Regular Strength -] 325 mg PO Q6H PRN 11/30/19 Ascorbate Calcium [Vitamin C] 500 mg PO DAILY 11/30/19 Calcium Carbonate/Vitamin D3 [Calcium 500 + Vit D Caplet] 1 each PO DAILY 11/30/19 Collagenase Clostridium Hist. [Santyl] 1 applic TP DAILY 11/30/19 Latanoprost 0.005% Eye Drops [Xalatan 0.005% Eye Drops -] 1 drop OU DAILY 11/30/19 Multivitamin [One-Daily Multi-Vitamin] 1 each PO DAILY 11/30/19 Amino Acids/Protein Hydrolys [Prosource No Carb Liquid Pkt] 30 ml PO BID@0800,1730 packet 12/07/19 Amoxicillin/Potassium Clav [Augmentin 875-125 Tablet] 1 each PO BID 7 Days #14 tablet 12/07/19 <Corey Camilo - Last Filed: 12/07/19 15:26> - Home Medications Comprehensive Discharge Medication List: Ambulatory Orders Acetaminophen [Tylenol .Extra-Strength -] 1,000 mg PO DAILY 11/30/19 Acetaminophen [Tylenol .Regular Strength -] 325 mg PO Q6H PRN 11/30/19 Ascorbate Calcium [Vitamin C] 500 mg PO DAILY 11/30/19 Calcium Carbonate/Vitamin D3 [Calcium 500 + Vit D Caplet] 1 each PO DAILY 11/30/19 Collagenase Clostridium Hist. [Santyl] 1 applic TP DAILY 11/30/19 Latanoprost 0.005% Eye Drops [Xalatan 0.005% Eye Drops -] 1 drop OU DAILY 11/30/19 Multivitamin [One-Daily Multi-Vitamin] 1 each PO DAILY 11/30/19 Amino Acids/Protein Hydrolys [Prosource No Carb Liquid Pkt] 30 ml PO BID@0800,1730 packet 12/07/19 Amoxicillin/Potassium Clav [Augmentin 875-125 Tablet] 1 each PO BID 7 Days #14 tablet 12/07/19 Ascorbic Acid [Vitamin C -] 250 mg PO DAILY tablet 12/07/19 Docusate Liquid [Colace Liquid -] 100 mg PO DAILY PRN ud 12/07/19 Ferrous Sulfate [Feosol] 300 mg PO DAILY #0 udc 12/07/19 Zinc Sulfate [Orazinc -] 220 mg PO DAILY capsule 12/07/19 <Pritesh Andre - Last Filed: 01/23/20 14:55> Condition: Good - Instructions Diet, Activity, Other Instructions: You were admitted for debridement (removal of scar tissue) of an infected ulcer on your back. You were placed on antibiotics and will be continuing antibiotics through your IV line in your right arm after you leave here. You have remained afebrile and are now stable enough for discharge. You will need to be evaluated by wound care experts at your nursing care facility. You have a wound vaccum covering your ulcer and suctioning out the drainage from your ulcer. You should have a repeat cbc at your facility on thursday. You should follow up with your wound care doctor (Dr. Ritter) in a few weeks. You should follow up with your infectious disease doctor (Dr. Tobar) for status on your antibiotic therapy. Start this new medication: Augmentin 875 twice a day for 6 days after you leave the hospital. Ferrous sulfate for iron deficiency along with colace stool softener. You should continue your home medications as prescribed. You should return to the ED if you have any worsening of your current symptoms or: chest pain, shortness of breath, abdominal pain, bowel/bladder complaints. Referrals: Shay Tobar MD [Staff Physician] - 1 Week Chuy Poe [Non Staff, Medical] - Connor Ritter DO [Primary Care Provider] - 1 Week Disposition: PRISON FACILITY - Discharge Referral Referred to [facility] Med P.C.: No <Corey Camilo - Last Filed: 12/07/19 15:26> ATTENDING PHYSICIAN STATEMENT I saw and evaluated the patient. I reviewed the resident's note and discussed the case with the resident. I agree with the resident's findings and plan as documented. SUBJECTIVE: OBJECTIVE: ASSESSMENT AND PLAN: <Corey Camilo - Last Filed: 12/07/19 15:26> ATTENDING PHYSICIAN STATEMENT I saw and evaluated the patient. I reviewed the resident's note and discussed the case with the resident. I agree with the resident's findings and plan as documented. SUBJECTIVE: OBJECTIVE: ASSESSMENT AND PLAN: <Pritesh Andre - Last Filed: 01/23/20 14:55>
[2019-12-07 14:35] LABS: BASO % 0.5 % (0-2.0); EOS % 1.8 % (0-4.5); HEMATOCRIT 32.6 % (32.4-45.2); HEMOGLOBIN 10.4 GM/dL (10.7-15.3); MCH 24.5 pg (25.7-33.7); MCHC 31.8 g/dl (32.0-36.0); MONO % 4.4 % (3.8-10.2); NEUT % 85.3 % (42.8-82.8); PLATELET COUNT 298 K/MM3 (134-434); RBC 4.24 M/mm3 (3.60-5.2); RDW 15.6 % (11.6-15.6); WHITE BLOOD COUNT 13.2 K/mm3 (4.0-10.0)
--- NOTE | 2019-12-07 14:53 | PN ---
Teaching Attending Note Name of Resident: Corey Camilo ATTENDING PHYSICIAN STATEMENT I saw and evaluated the patient. I reviewed the resident's note and discussed the case with the resident. I agree with the resident's findings and plan as documented. SUBJECTIVE: Non-verbal, unable to participate in medical interview OBJECTIVE: Afebrile, Hemodynamically Stable. Not very interactive. Last Vital Signs Temp Pulse Resp BP Pulse Ox 98.2 F 76 20 143/49 L 98 12/07/19 12:12 12/07/19 12:12 12/07/19 12:12 12/07/19 12:12 12/06/19 09:00 HEENT - Atraumatic Heart - S1, S2, RRR Lungs - clear to auscultation Abdomen - High BMI. Soft, non-tender. Bowel Sounds normal. Extremities - no calf tenderness, no edema. RUE PICC. - Wound Vac in place over sacral ulcer. Laboratory Tests 11/30/19 11/30/19 11/30/19 13:00 13:00 13:00 WBC 10.8 H RBC 4.96 Hgb 12.3 Hct 38.1 MCV 76.8 L MCH 24.9 L MCHC 32.4 RDW 15.6 Plt Count 360 MPV 7.9 Absolute Neuts (auto) 8.6 H Neutrophils % 79.5 Lymphocytes % 13.5 Monocytes % 5.7 Eosinophils % 0.4 Basophils % 0.9 Nucleated RBC % 0 ESR PT with INR 13.70 H INR 1.16 H PTT (Actin FS) Sodium 140 Potassium 4.7 Chloride 109 H Carbon Dioxide 24 Anion Gap 7 L BUN 14.8 Creatinine 0.6 Est GFR (CKD-EPI)AfAm 95.66 Est GFR (CKD-EPI)NonAf 82.53 Random Glucose 162 H Calcium 8.4 L Phosphorus Magnesium Iron TIBC Iron Saturation Unsaturated IBC Ferritin Total Bilirubin 0.4 AST 36 ALT 30 Alkaline Phosphatase 74 C-Reactive Protein Total Protein 6.5 Albumin 2.6 L Prealbumin Urine Color Urine Appearance Urine pH Ur Specific [place] Urine Protein Urine Glucose (UA) Urine Ketones Urine Blood Urine Nitrite Urine Bilirubin Urine Urobilinogen Ur Leukocyte Esterase Vancomycin Pre-Dose Blood Type Antibody Screen 11/30/19 11/30/19 11/30/19 13:00 13:38 14:33 WBC RBC Hgb Hct MCV MCH MCHC RDW Plt Count MPV Absolute Neuts (auto) Neutrophils % Lymphocytes % Monocytes % Eosinophils % Basophils % Nucleated RBC % ESR PT with INR INR PTT (Actin FS) Sodium Potassium Chloride Carbon Dioxide Anion Gap BUN Creatinine Est GFR (CKD-EPI)AfAm Est GFR (CKD-EPI)NonAf Random Glucose Calcium Phosphorus Magnesium Iron TIBC Iron Saturation Unsaturated IBC Ferritin Total Bilirubin AST ALT Alkaline Phosphatase C-Reactive Protein Total Protein Albumin Prealbumin Urine Color Urine Appearance Urine pH Ur Specific [place] Urine Protein Urine Glucose (UA) Urine Ketones Urine Blood Urine Nitrite Urine Bilirubin Urine Urobilinogen Ur Leukocyte Esterase Vancomycin Pre-Dose Blood Type Cancelled Cancelled O POSITIVE Antibody Screen Cancelled Cancelled Negative 11/30/19 12/01/19 12/01/19 15:45 08:25 08:25 WBC 9.1 RBC 4.24 Hgb 10.6 L Hct 32.5 MCV 76.6 L MCH 25.0 L MCHC 32.6 RDW 15.2 Plt Count 304 MPV 7.9 Absolute Neuts (auto) 7.2 Neutrophils % 79.8 Lymphocytes % 12.8 Monocytes % 6.3 Eosinophils % 0.6 Basophils % 0.5 Nucleated RBC % 0 ESR PT with INR 14.40 H INR 1.22 H PTT (Actin FS) 34.2 Sodium Potassium Chloride Carbon Dioxide Anion Gap BUN Creatinine Est GFR (CKD-EPI)AfAm Est GFR (CKD-EPI)NonAf Random Glucose Calcium Phosphorus Magnesium Iron TIBC Iron Saturation Unsaturated IBC Ferritin Total Bilirubin AST ALT Alkaline Phosphatase C-Reactive Protein Total Protein Albumin Prealbumin Urine Color Yellow Urine Appearance Clear Urine pH 6.5 Ur Specific [place] 1.018 Urine Protein Negative Urine Glucose (UA) Negative Urine Ketones Negative Urine Blood Negative Urine Nitrite Negative Urine Bilirubin Negative Urine Urobilinogen 1.0 Ur Leukocyte Esterase Negative Vancomycin Pre-Dose Blood Type Antibody Screen 12/01/19 12/02/19 12/02/19 08:25 07:10 07:10 WBC 9.3 RBC 4.21 Hgb 10.5 L Hct 32.4 MCV 77.0 L MCH 25.1 L MCHC 32.5 RDW 15.0 Plt Count 292 MPV 8.1 Absolute Neuts (auto) 6.9 Neutrophils % 73.5 Lymphocytes % 17.0 D Monocytes % 7.8 Eosinophils % 1.0 Basophils % 0.7 Nucleated RBC % 0 ESR PT with INR INR PTT (Actin FS) Sodium 140 141 Potassium 3.4 L 3.5 Chloride 106 109 H Carbon Dioxide 26 25 Anion Gap 7 L 7 L BUN 11.0 8.7 Creatinine 0.6 0.6 Est GFR (CKD-EPI)AfAm 95.66 95.66 Est GFR (CKD-EPI)NonAf 82.53 82.53 Random Glucose 153 H 139 H Calcium 8.0 L 8.3 L Phosphorus 3.0 Magnesium 2.1 Iron TIBC Iron Saturation Unsaturated IBC Ferritin Total Bilirubin 0.6 0.6 AST 14 L 16 ALT 21 20 Alkaline Phosphatase 58 56 C-Reactive Protein Total Protein 5.5 L 5.6 L Albumin 2.2 L 2.1 L Prealbumin Urine Color Urine Appearance Urine pH Ur Specific [place] Urine Protein Urine Glucose (UA) Urine Ketones Urine Blood Urine Nitrite Urine Bilirubin Urine Urobilinogen Ur Leukocyte Esterase Vancomycin Pre-Dose Blood Type Antibody Screen 12/03/19 12/03/19 12/04/19 06:10 06:10 06:50 WBC 9.5 RBC 4.31 Hgb 10.7 Hct 33.0 MCV 76.7 L MCH 24.8 L MCHC 32.4 RDW 15.6 Plt Count 318 MPV 7.7 Absolute Neuts (auto) 7.4 Neutrophils % 77.0 Lymphocytes % 14.5 Monocytes % 6.7 Eosinophils % 1.3 Basophils % 0.5 Nucleated RBC % 0 ESR PT with INR INR PTT (Actin FS) Sodium 146 H 145 Potassium 3.5 3.3 L Chloride 114 H 114 H Carbon Dioxide 26 26 Anion Gap 6 L 5 L BUN 10.8 7.9 Creatinine 0.7 0.6 Est GFR (CKD-EPI)AfAm 90.93 94.99 Est GFR (CKD-EPI)NonAf 78.45 81.95 Random Glucose 108 H 107 H Calcium 8.5 8.0 L Phosphorus Magnesium Iron TIBC Iron Saturation Unsaturated IBC Ferritin Total Bilirubin 0.6 AST 15 ALT 17 Alkaline Phosphatase 57 C-Reactive Protein Total Protein 5.7 L Albumin 2.2 L Prealbumin 9.6 L Urine Color Urine Appearance Urine pH Ur Specific [place] Urine Protein Urine Glucose (UA) Urine Ketones Urine Blood Urine Nitrite Urine Bilirubin Urine Urobilinogen Ur Leukocyte Esterase Vancomycin Pre-Dose Blood Type Antibody Screen 12/04/19 12/04/19 12/05/19 06:50 06:50 05:35 WBC 10.3 H RBC 4.17 Hgb 10.5 L Hct 32.1 L MCV 77.0 L MCH 25.2 L MCHC 32.8 RDW 15.5 Plt Count 297 MPV 7.7 Absolute Neuts (auto) 7.8 Neutrophils % 76.2 Lymphocytes % 14.9 Monocytes % 7.1 Eosinophils % 1.1 Basophils % 0.7 Nucleated RBC % 0 ESR 64 H PT with INR INR PTT (Actin FS) Sodium Potassium Chloride Carbon Dioxide Anion Gap BUN Creatinine Est GFR (CKD-EPI)AfAm Est GFR (CKD-EPI)NonAf Random Glucose Calcium Phosphorus Magnesium Iron 35 L TIBC 218 L Iron Saturation 16 L Unsaturated IBC 183 L Ferritin 130.6 Total Bilirubin AST ALT Alkaline Phosphatase C-Reactive Protein 4.4 H Total Protein Albumin Prealbumin Urine Color Urine Appearance Urine pH Ur Specific [place] Urine Protein Urine Glucose (UA) Urine Ketones Urine Blood Urine Nitrite Urine Bilirubin Urine Urobilinogen Ur Leukocyte Esterase Vancomycin Pre-Dose 10.0 L Blood Type Antibody Screen 12/05/19 12/05/19 12/06/19 05:35 05:35 07:30 WBC 11.3 H 11.3 H RBC 4.07 4.15 Hgb 10.1 L 10.3 L Hct 31.1 L 31.5 L MCV 76.3 L 75.9 L MCH 24.7 L 24.7 L MCHC 32.4 32.6 RDW 15.3 15.8 H Plt Count 288 295 MPV 7.5 8.0 Absolute Neuts (auto) Neutrophils % Lymphocytes % Monocytes % Eosinophils % Basophils % Nucleated RBC % ESR PT with INR INR PTT (Actin FS) Sodium 145 Potassium 3.4 L Chloride 113 H Carbon Dioxide 26 Anion Gap 5 L BUN 8.9 Creatinine 0.6 Est GFR (CKD-EPI)AfAm 94.99 Est GFR (CKD-EPI)NonAf 81.95 Random Glucose 111 H Calcium 7.9 L Phosphorus Magnesium 2.0 Iron TIBC Iron Saturation Unsaturated IBC Ferritin Total Bilirubin 0.3 AST 12 L ALT 18 Alkaline Phosphatase 53 C-Reactive Protein Total Protein 5.3 L Albumin 2.1 L Prealbumin Urine Color Urine Appearance Urine pH Ur Specific [place] Urine Protein Urine Glucose (UA) Urine Ketones Urine Blood Urine Nitrite Urine Bilirubin Urine Urobilinogen Ur Leukocyte Esterase Vancomycin Pre-Dose Blood Type Antibody Screen 12/06/19 07:30 WBC RBC Hgb Hct MCV MCH MCHC RDW Plt Count MPV Absolute Neuts (auto) Neutrophils % Lymphocytes % Monocytes % Eosinophils % Basophils % Nucleated RBC % ESR PT with INR INR PTT (Actin FS) Sodium 147 H Potassium 3.3 L Chloride 113 H Carbon Dioxide 29 Anion Gap 5 L BUN 8.2 Creatinine 0.7 Est GFR (CKD-EPI)AfAm 90.29 Est GFR (CKD-EPI)NonAf 77.90 Random Glucose 113 H Calcium 8.5 Phosphorus Magnesium Iron TIBC Iron Saturation Unsaturated IBC Ferritin Total Bilirubin AST ALT Alkaline Phosphatase C-Reactive Protein Total Protein Albumin Prealbumin Urine Color Urine Appearance Urine pH Ur Specific [place] Urine Protein Urine Glucose (UA) Urine Ketones Urine Blood Urine Nitrite Urine Bilirubin Urine Urobilinogen Ur Leukocyte Esterase Vancomycin Pre-Dose Blood Type Antibody Screen Current Medications Generic Name Dose Route Start Last Admin Trade Name Freq PRN Reason Stop Dose Admin Acetaminophen 650 mg 12/03/19 14:56 12/07/19 11:26 Tylenol - PO 650 mg Q6H PRN Administration PAIN Amino Acids 30 ml 12/05/19 17:30 12/07/19 08:43 Prosource No Carb Liquid Pkt PO 30 ml BID@0800,1730 TRISTEN Administration Ascorbic Acid 250 mg 12/05/19 10:00 12/07/19 10:09 Vitamin C - PO 250 mg DAILY TRISTEN Administration Docusate Sodium 100 mg 12/04/19 08:16 12/04/19 12:16 Colace Liquid - PO 100 mg DAILY PRN Administration CONSTIPATION Ferrous Sulfate 300 mg 12/04/19 10:00 12/07/19 10:08 Feosol PO 300 mg BIDWM TRISTEN Administration Heparin Sodium (Porcine) 5,000 unit 12/02/19 22:00 12/07/19 14:15 Heparin - SQ 5,000 unit TID TRISTEN Administration Piperacillin Sod/Tazobactam 50 mls @ 100 mls/hr 12/02/19 18:00 12/07/19 10:09 Sod 3.375 gm/ Dextrose IVPB 100 mls/hr Q8H-IV TRISTEN Administration Protocol Lactated Ringer's 1,000 ml in 1,000 mls @ 60 mls/hr 12/03/19 11:15 12/07/19 12:35 Lactated Ringers Solution IV Not Given ASDIR TRISTEN Latanoprost 1 drop 12/03/19 22:00 12/06/19 21:47 Xalatan 0.005% Eye Drops - OU 1 drop HS TRISTEN Administration Multivitamins/Minerals/Vitamin C 1 tab 12/05/19 10:00 12/07/19 10:09 Tab-A-Vit - PO 1 tab DAILY TRISTEN Administration Zinc Sulfate 220 mg 12/05/19 10:00 12/07/19 10:09 Orazinc - PO 220 mg DAILY TRISTEN Administration Home Medications Medication Instructions Recorded Acetaminophen [Tylenol 1,000 mg PO DAILY 11/30/19 .Extra-Strength -] Acetaminophen [Tylenol .Regular 325 mg PO Q6H PRN 11/30/19 Strength -] Ascorbate Calcium [Vitamin C] 500 mg PO DAILY 11/30/19 Calcium Carbonate/Vitamin D3 1 each PO DAILY 11/30/19 [Calcium 500 + Vit D Caplet] Collagenase Clostridium Hist. 1 applic TP DAILY 11/30/19 [Santyl] Latanoprost 0.005% Eye Drops 1 drop OU DAILY 11/30/19 [Xalatan 0.005% Eye Drops -] Multivitamin [One-Daily 1 each PO DAILY 11/30/19 Multi-Vitamin] Amino Acids/Protein Hydrolys 30 ml PO BID@0800,1730 packet 12/07/19 [Prosource No Carb Liquid Pkt] Amoxicillin/Potassium Clav 1 each PO BID 7 Days #14 tablet 12/07/19 [Augmentin 875-125 Tablet] ASSESSMENT AND PLAN: 88 year old female with history of Advanced Dementia (bed bound, non-verbal at baseline), HTN, HLD, Schizophrenia, Osteoporosis, and sacral decubitus ulcer presents with ulcer infection. 1. Acute Infection Stage IV Decubitus Ulcer, fever resolving. POD 5 s/p excisional debridement Wound Cx LFNB/NLFNB Received IV Zosyn - able to transition to oral Augmentin for 7 days as per ID. Medically stable for transfer to [facility] with ongoing wound care. 2. Functional Quadriplegia sec to Advanced Dementia Fully dependent for ADLs For return to SNF today. 3. Chronic Anemia, iron deficiency - continue Ferrous Sulfate supplementation. 4. Hypokalemia - repleted. Medically optimized for discharge back to SNF.
[2019-12-07 14:58] LABS: BLOOD UREA NITROGEN 13.4 mg/dL (7-18); CALCIUM 8.4 mg/dL (8.5-10.1); CREATININE 0.7 mg/dL (0.55-1.3); POTASSIUM 3.8 mmol/L (3.5-5.1)
--- NOTE | 2019-12-07 19:27 | PATH ---
Surgical Pathology Report Patient Name: IMTIAZ ZIEGLER Med. Rec. #: [id number] /Age/Gender: 1930 (Age: 88) / F Account: [id number] Location: [facility] MED/SURG Taken: 12/02/2019 Received: 12/02/2019 Reported: 12/07/2019 Physicians: Tess Ritter M.D. Specimen(s) Received SACRAL WOUND DEBRIDEMENT Clinical History Sacral pressure ulcer Final Diagnosis NECROTIC TISSUE SACRAL REGION, DEBRIDEMENT: FIBROADIPOSE TISSUE WITH GANGRENOUS NECROSIS AND ABSCESS FORMATION. Electronically Signed Slade Bhatt M.D. Gross Description Received in formalin labeled "necrotic tissue sacrum," is a 5.7 x 3.5 x 1.5 cm bergman-henson, necrotic portion of soft tissue. A inside sales account representative section is submitted in one cassette. /12/05/2019 saudi/12/05/2019
[2019-12-07] MEDS: LATANOPROST 0.005% OPHTH SOLN 2.5ML BOTTLE OU SCH (23:20)
[2019-12-08] MEDS: LACTATED RINGERS SOLUTION 1,000 ML/1,000 ML INFUS.BAG IV SCH ×2 (00:23→17:18)
[2019-12-08] MEDS ORDERED: PIPERACILLIN/TAZOBACTAM 3.375 GM VIAL IVPB ONE ×3 (01:44→17:02)
[2019-12-08] MEDS ORDERED: DEXTROSE 5%-WATER - 50 ML IVPB ONE ×3 (01:45→17:02)
[2019-12-08] MEDS: PIPERACILLIN/TAZOB 3.375 GM 3.375 GM in DEXTROSE 5%-WATER - 50 ML IVPB SCH ×3 (01:51→17:19)
[2019-12-08] MEDS: HEPARIN NA (PORCINE) 5,000 UNITS/ML 1ML VIAL SQ SCH ×3 (06:32→21:00)
[2019-12-08] MEDS ORDERED: PT OWN MED DRAWER 7, Y5N ONE ×2 (09:53→17:01)
[2019-12-08] MEDS: FERROUS SO4 300 MG/5 ML ORAL SOLN UNIT DOSE CUPS PO SCH ×2 (09:56→17:18)
[2019-12-08] MEDS: MULTIVITAMINS (DAILY MVI) TABLET (FP) PO SCH (09:56)
[2019-12-08] MEDS: ZINC SULFATE 220 MG CAPSULE (FP) PO SCH (09:56)
[2019-12-08] MEDS: AMINO ACIDS/PROTEIN HYDROLYS 30 ML LIQUID.PKT PO SCH ×2 (09:56→17:18)
[2019-12-08] MEDS: ASCORBIC ACID 250 MG TABLET (FP) PO SCH (09:56)
--- NOTE | 2019-12-08 17:14 | PN ---
Teaching Attending Note Name of Resident: Corey Camilo ATTENDING PHYSICIAN STATEMENT I saw and evaluated the patient. I reviewed the resident's note and discussed the case with the resident. I agree with the resident's findings and plan as documented. SUBJECTIVE: Non-verbal, unable to participate in medical interview OBJECTIVE: Tmax 99.5, Hemodynamically Stable. Minimally interactive. Last Vital Signs Temp Pulse Resp BP Pulse Ox 97.5 F L 74 20 139/66 97 12/08/19 16:15 12/08/19 16:15 12/08/19 16:15 12/08/19 16:15 12/08/19 09:00 HEENT - Atraumatic Heart - S1, S2, RRR Lungs - clear to auscultation Abdomen - High BMI. Soft, non-tender. Bowel Sounds normal. Extremities - no calf tenderness, no edema. RUE PICC. - Wound Vac in place over sacral ulcer. Current Medications Generic Name Dose Route Start Last Admin Trade Name Freq PRN Reason Stop Dose Admin Acetaminophen 650 mg 12/03/19 14:56 12/07/19 11:26 Tylenol - PO 650 mg Q6H PRN Administration PAIN Amino Acids 30 ml 12/05/19 17:30 12/08/19 17:18 Prosource No Carb Liquid Pkt PO 30 ml BID@0800,1730 TRISTEN Administration Amoxicillin/Clavulanate Potassium 1 tab 12/09/19 10:00 Augmentin - 875mg Tablet PO BID@0800,1730 TRISTEN Ascorbic Acid 250 mg 12/05/19 10:00 12/08/19 09:56 Vitamin C - PO 250 mg DAILY TRISTEN Administration Docusate Sodium 100 mg 12/04/19 08:16 12/04/19 12:16 Colace Liquid - PO 100 mg DAILY PRN Administration CONSTIPATION Ferrous Sulfate 300 mg 12/04/19 10:00 12/08/19 17:18 Feosol PO 300 mg BIDWM TRISTEN Administration Heparin Sodium (Porcine) 5,000 unit 12/02/19 22:00 12/08/19 14:26 Heparin - SQ 5,000 unit TID TRISTEN Administration Piperacillin Sod/Tazobactam 50 mls @ 100 mls/hr 12/02/19 18:00 12/08/19 17:19 Sod 3.375 gm/ Dextrose IVPB 12/09/19 00:00 100 mls/hr Q8H-IV TRISTEN Administration Protocol Lactated Ringer's 1,000 ml in 1,000 mls @ 60 mls/hr 12/03/19 11:15 12/08/19 17:18 Lactated Ringers Solution IV 60 mls/hr ASDIR TRISTEN Administration Latanoprost 1 drop 12/03/19 22:00 12/07/19 23:20 Xalatan 0.005% Eye Drops - OU 1 drop HS TRISTEN Administration Multivitamins/Minerals/Vitamin C 1 tab 12/05/19 10:00 12/08/19 09:56 Tab-A-Vit - PO 1 tab DAILY TRISTEN Administration Zinc Sulfate 220 mg 12/05/19 10:00 12/08/19 09:56 Orazinc - PO 220 mg DAILY TRISTEN Administration Home Medications Medication Instructions Recorded Acetaminophen [Tylenol 1,000 mg PO DAILY 11/30/19 .Extra-Strength -] Acetaminophen [Tylenol .Regular 325 mg PO Q6H PRN 11/30/19 Strength -] Ascorbate Calcium [Vitamin C] 500 mg PO DAILY 11/30/19 Calcium Carbonate/Vitamin D3 1 each PO DAILY 11/30/19 [Calcium 500 + Vit D Caplet] Collagenase Clostridium Hist. 1 applic TP DAILY 11/30/19 [Santyl] Latanoprost 0.005% Eye Drops 1 drop OU DAILY 11/30/19 [Xalatan 0.005% Eye Drops -] Multivitamin [One-Daily 1 each PO DAILY 11/30/19 Multi-Vitamin] Amino Acids/Protein Hydrolys 30 ml PO BID@0800,1730 packet 12/07/19 [Prosource No Carb Liquid Pkt] Ascorbic Acid [Vitamin C -] 250 mg PO DAILY tablet 12/07/19 Docusate Liquid [Colace Liquid -] 100 mg PO DAILY PRN ud 12/07/19 Ferrous Sulfate [Feosol] 300 mg PO DAILY #0 udc 12/07/19 Zinc Sulfate [Orazinc -] 220 mg PO DAILY capsule 12/07/19 Amoxicillin/Potassium Clav 1 each PO BID #12 tablet 12/08/19 [Augmentin 875-125 Tablet] ASSESSMENT AND PLAN: 88 year old female with history of Advanced Dementia (bed bound, non-verbal at baseline), HTN, HLD, Schizophrenia, Osteoporosis, and sacral decubitus ulcer presents with ulcer infection. 1. Acute Infection Stage IV Decubitus Ulcer, fever resolved. POD 6 s/p excisional debridement Wound Cx LFNB/NLFNB Received IV Zosyn - transition to oral Augmentin for 7 days as per ID. Medically stable for transfer to [facility] with ongoing wound vac/wound care. 2. Functional Quadriplegia sec to Advanced Dementia Fully dependent for ADLs For return to SNF. 3. Chronic Anemia, iron deficiency - continue Ferrous Sulfate supplementation. 4. Hypokalemia - repleted. Medically optimized for discharge back to SNF.
[2019-12-08] MEDS: LATANOPROST 0.005% OPHTH SOLN 2.5ML BOTTLE OU SCH (21:00)
[2019-12-09] MEDS: HEPARIN NA (PORCINE) 5,000 UNITS/ML 1ML VIAL SQ SCH ×2 (05:58→14:39)
[2019-12-09] MEDS ORDERED: PT OWN MED DRAWER 7, Y5N ONE ×2 (09:26→16:46)
[2019-12-09] MEDS: AMOX TR/POT CLAV 875MG/125MG TABLETS (FP) PO SCH ×2 (09:32→16:47)
[2019-12-09] MEDS: ZINC SULFATE 220 MG CAPSULE (FP) PO SCH (09:33)
[2019-12-09] MEDS: AMINO ACIDS/PROTEIN HYDROLYS 30 ML LIQUID.PKT PO SCH ×2 (09:33→16:47)
[2019-12-09] MEDS: FERROUS SO4 300 MG/5 ML ORAL SOLN UNIT DOSE CUPS PO SCH ×2 (09:33→16:47)
[2019-12-09] MEDS: MULTIVITAMINS (DAILY MVI) TABLET (FP) PO SCH (09:33)
[2019-12-09] MEDS: ASCORBIC ACID 250 MG TABLET (FP) PO SCH (09:33)
--- NOTE | 2019-12-09 16:31 | PN ---
Physical Exam: SUBJECTIVE: Patient seen and examined. Pt afebrile and asymptomatic. No overnight events. Denies f/c/n/v/d/sob Pt left Today OBJECTIVE: Vital Signs Period Temp Pulse Resp BP Sys/Chapa Pulse Ox Last 24 Hr 98.1 F-99.3 F 68-78 18-18 127-143/67-93 97-97 GENERAL: The patient is awake, HEAD: Normal with no signs of trauma. NECK: supple. LUNGS: Breath sounds equal, clear to auscultation bilaterally, no wheezes, no crackles, no accessory muscle use. HEART: Regular rate and rhythm, S1, S2 without murmur, rub or gallop. ABDOMEN: Soft, nontender, nondistended EXTREMITIES: 2+ pulses, no edema. NEUROLOGICAL: nonverbal at baseline SKIN: Warm, dry, wound vac on sacrum draining serosanguinous fluid. Active Medications Generic Name Dose Route Start Last Admin Trade Name Freq PRN Reason Stop Dose Admin Acetaminophen 650 mg 12/03/19 14:56 12/07/19 11:26 Tylenol - PO 650 mg Q6H PRN Administration PAIN Amino Acids 30 ml 12/05/19 17:30 12/09/19 09:33 Prosource No Carb Liquid Pkt PO 30 ml BID@0800,1730 TRISTEN Administration Amoxicillin/Clavulanate Potassium 1 tab 12/09/19 10:00 12/09/19 09:32 Augmentin - 875mg Tablet PO 1 tab BID@0800,1730 TRISTEN Administration Ascorbic Acid 250 mg 12/05/19 10:00 12/09/19 09:33 Vitamin C - PO 250 mg DAILY TRISTEN Administration Docusate Sodium 100 mg 12/04/19 08:16 12/04/19 12:16 Colace Liquid - PO 100 mg DAILY PRN Administration CONSTIPATION Ferrous Sulfate 300 mg 12/04/19 10:00 12/09/19 09:33 Feosol PO 300 mg BIDWM TRISTEN Administration Heparin Sodium (Porcine) 5,000 unit 12/02/19 22:00 12/09/19 14:39 Heparin - SQ 5,000 unit TID TRISTEN Administration Lactated Ringer's 1,000 ml in 1,000 mls @ 60 mls/hr 12/03/19 11:15 12/08/19 17:18 Lactated Ringers Solution IV 60 mls/hr ASDIR TRISTEN Administration Latanoprost 1 drop 12/03/19 22:00 12/08/19 21:00 Xalatan 0.005% Eye Drops - OU 1 drop HS TRISTEN Administration Multivitamins/Minerals/Vitamin C 1 tab 12/05/19 10:00 12/09/19 09:33 Tab-A-Vit - PO 1 tab DAILY TRISTEN Administration Zinc Sulfate 220 mg 12/05/19 10:00 12/09/19 09:33 Orazinc - PO 220 mg DAILY TRISTEN Administration ASSESSMENT/PLAN: 88 y/o/f with PMHx of Dementia (bed bound, non-verbal at baseline), HTN, HLD, schizophrenia, osteoporosis, arthritis, and decubitus ulcer presents for worsening of her decubitus ulcer. POD#3 of sacral wound debridement. #Stage IV Decubitus Ulcer 2/2 functional quadriplegia pt is bed bound with dementia non-verbal assistance with all ADL's POD#4 Excisional Debridement sacral ulcer Blood culture, urine cultures negative to date Wound culture growing Non Lactose fermenting GNB x2, lactose fermenting negative bacilli x1. pending sensitivities. w #Iron Deficiency Anemia Iron studies completed, Iron low Started on Ferrous Sulfate 300mg PO BIDWM #DVT Ppx. - Hep SQ BID #Dispo Patient comes from [facility] in [place], Pt was supposed to leave yesterday, but did not leave till today Visit type - Emergency Visit Emergency Visit: Yes ED Registration Date: 11/30/19 Care time: The patient presented to the Emergency Department on the above date and was hospitalized for further evaluation of their emergent condition. - New Patient This patient is new to me today: Yes Date on this admission: 12/12/19 - Critical Care Critical Care patient: No - Discharge Referral Referred to [facility] Med [facility].C[facility] No ATTENDING PHYSICIAN STATEMENT I saw and evaluated the patient. I reviewed the resident's note and discussed the case with the resident. I agree with the resident's findings and plan as documented. SUBJECTIVE: OBJECTIVE: ASSESSMENT AND PLAN:
[2019-12-09 17:01] VITALS: BP 134/61; PULSE 80; TEMP 98.4
--- NOTE | 2019-12-09 17:52 | PN ---
Teaching Attending Note Name of Resident: Valente Mac ATTENDING PHYSICIAN STATEMENT I saw and evaluated the patient. I reviewed the resident's note and discussed the case with the resident. I agree with the resident's findings and plan as documented. SUBJECTIVE: Non-verbal, unable to participate in medical interview OBJECTIVE: Afebrile, Hemodynamically Stable. Minimally interactive. Last Vital Signs Temp Pulse Resp BP Pulse Ox 98.4 F 80 18 134/61 97 12/09/19 16:20 12/09/19 16:20 12/09/19 16:20 12/09/19 16:20 12/09/19 09:00 Heart - S1, S2, RRR Lungs - clear to auscultation Abdomen - High BMI. Soft, non-tender. Bowel Sounds normal. Extremities - no calf tenderness, no edema. RUE PICC. - Wound Vac in place over sacral ulcer. Laboratory Tests 11/30/19 11/30/19 11/30/19 13:00 13:00 13:00 WBC 10.8 H RBC 4.96 Hgb 12.3 Hct 38.1 MCV 76.8 L MCH 24.9 L MCHC 32.4 RDW 15.6 Plt Count 360 MPV 7.9 Absolute Neuts (auto) 8.6 H Neutrophils % 79.5 Lymphocytes % 13.5 Monocytes % 5.7 Eosinophils % 0.4 Basophils % 0.9 Nucleated RBC % 0 ESR PT with INR 13.70 H INR 1.16 H PTT (Actin FS) Sodium 140 Potassium 4.7 Chloride 109 H Carbon Dioxide 24 Anion Gap 7 L BUN 14.8 Creatinine 0.6 Est GFR (CKD-EPI)AfAm 95.66 Est GFR (CKD-EPI)NonAf 82.53 Random Glucose 162 H Calcium 8.4 L Phosphorus Magnesium Iron TIBC Iron Saturation Unsaturated IBC Ferritin Total Bilirubin 0.4 AST 36 ALT 30 Alkaline Phosphatase 74 C-Reactive Protein Total Protein 6.5 Albumin 2.6 L Prealbumin Urine Color Urine Appearance Urine pH Ur Specific [place] Urine Protein Urine Glucose (UA) Urine Ketones Urine Blood Urine Nitrite Urine Bilirubin Urine Urobilinogen Ur Leukocyte Esterase Vancomycin Pre-Dose Blood Type Antibody Screen 11/30/19 11/30/19 11/30/19 13:00 13:38 14:33 WBC RBC Hgb Hct MCV MCH MCHC RDW Plt Count MPV Absolute Neuts (auto) Neutrophils % Lymphocytes % Monocytes % Eosinophils % Basophils % Nucleated RBC % ESR PT with INR INR PTT (Actin FS) Sodium Potassium Chloride Carbon Dioxide Anion Gap BUN Creatinine Est GFR (CKD-EPI)AfAm Est GFR (CKD-EPI)NonAf Random Glucose Calcium Phosphorus Magnesium Iron TIBC Iron Saturation Unsaturated IBC Ferritin Total Bilirubin AST ALT Alkaline Phosphatase C-Reactive Protein Total Protein Albumin Prealbumin Urine Color Urine Appearance Urine pH Ur Specific [place] Urine Protein Urine Glucose (UA) Urine Ketones Urine Blood Urine Nitrite Urine Bilirubin Urine Urobilinogen Ur Leukocyte Esterase Vancomycin Pre-Dose Blood Type Cancelled Cancelled O POSITIVE Antibody Screen Cancelled Cancelled Negative 11/30/19 12/01/19 12/01/19 15:45 08:25 08:25 WBC 9.1 RBC 4.24 Hgb 10.6 L Hct 32.5 MCV 76.6 L MCH 25.0 L MCHC 32.6 RDW 15.2 Plt Count 304 MPV 7.9 Absolute Neuts (auto) 7.2 Neutrophils % 79.8 Lymphocytes % 12.8 Monocytes % 6.3 Eosinophils % 0.6 Basophils % 0.5 Nucleated RBC % 0 ESR PT with INR 14.40 H INR 1.22 H PTT (Actin FS) 34.2 Sodium Potassium Chloride Carbon Dioxide Anion Gap BUN Creatinine Est GFR (CKD-EPI)AfAm Est GFR (CKD-EPI)NonAf Random Glucose Calcium Phosphorus Magnesium Iron TIBC Iron Saturation Unsaturated IBC Ferritin Total Bilirubin AST ALT Alkaline Phosphatase C-Reactive Protein Total Protein Albumin Prealbumin Urine Color Yellow Urine Appearance Clear Urine pH 6.5 Ur Specific [place] 1.018 Urine Protein Negative Urine Glucose (UA) Negative Urine Ketones Negative Urine Blood Negative Urine Nitrite Negative Urine Bilirubin Negative Urine Urobilinogen 1.0 Ur Leukocyte Esterase Negative Vancomycin Pre-Dose Blood Type Antibody Screen 12/01/19 12/02/19 12/02/19 08:25 07:10 07:10 WBC 9.3 RBC 4.21 Hgb 10.5 L Hct 32.4 MCV 77.0 L MCH 25.1 L MCHC 32.5 RDW 15.0 Plt Count 292 MPV 8.1 Absolute Neuts (auto) 6.9 Neutrophils % 73.5 Lymphocytes % 17.0 D Monocytes % 7.8 Eosinophils % 1.0 Basophils % 0.7 Nucleated RBC % 0 ESR PT with INR INR PTT (Actin FS) Sodium 140 141 Potassium 3.4 L 3.5 Chloride 106 109 H Carbon Dioxide 26 25 Anion Gap 7 L 7 L BUN 11.0 8.7 Creatinine 0.6 0.6 Est GFR (CKD-EPI)AfAm 95.66 95.66 Est GFR (CKD-EPI)NonAf 82.53 82.53 Random Glucose 153 H 139 H Calcium 8.0 L 8.3 L Phosphorus 3.0 Magnesium 2.1 Iron TIBC Iron Saturation Unsaturated IBC Ferritin Total Bilirubin 0.6 0.6 AST 14 L 16 ALT 21 20 Alkaline Phosphatase 58 56 C-Reactive Protein Total Protein 5.5 L 5.6 L Albumin 2.2 L 2.1 L Prealbumin Urine Color Urine Appearance Urine pH Ur Specific [place] Urine Protein Urine Glucose (UA) Urine Ketones Urine Blood Urine Nitrite Urine Bilirubin Urine Urobilinogen Ur Leukocyte Esterase Vancomycin Pre-Dose Blood Type Antibody Screen 12/03/19 12/03/19 12/04/19 06:10 06:10 06:50 WBC 9.5 RBC 4.31 Hgb 10.7 Hct 33.0 MCV 76.7 L MCH 24.8 L MCHC 32.4 RDW 15.6 Plt Count 318 MPV 7.7 Absolute Neuts (auto) 7.4 Neutrophils % 77.0 Lymphocytes % 14.5 Monocytes % 6.7 Eosinophils % 1.3 Basophils % 0.5 Nucleated RBC % 0 ESR PT with INR INR PTT (Actin FS) Sodium 146 H 145 Potassium 3.5 3.3 L Chloride 114 H 114 H Carbon Dioxide 26 26 Anion Gap 6 L 5 L BUN 10.8 7.9 Creatinine 0.7 0.6 Est GFR (CKD-EPI)AfAm 90.93 94.99 Est GFR (CKD-EPI)NonAf 78.45 81.95 Random Glucose 108 H 107 H Calcium 8.5 8.0 L Phosphorus Magnesium Iron TIBC Iron Saturation Unsaturated IBC Ferritin Total Bilirubin 0.6 AST 15 ALT 17 Alkaline Phosphatase 57 C-Reactive Protein Total Protein 5.7 L Albumin 2.2 L Prealbumin 9.6 L Urine Color Urine Appearance Urine pH Ur Specific [place] Urine Protein Urine Glucose (UA) Urine Ketones Urine Blood Urine Nitrite Urine Bilirubin Urine Urobilinogen Ur Leukocyte Esterase Vancomycin Pre-Dose Blood Type Antibody Screen 12/04/19 12/04/19 12/05/19 06:50 06:50 05:35 WBC 10.3 H RBC 4.17 Hgb 10.5 L Hct 32.1 L MCV 77.0 L MCH 25.2 L MCHC 32.8 RDW 15.5 Plt Count 297 MPV 7.7 Absolute Neuts (auto) 7.8 Neutrophils % 76.2 Lymphocytes % 14.9 Monocytes % 7.1 Eosinophils % 1.1 Basophils % 0.7 Nucleated RBC % 0 ESR 64 H PT with INR INR PTT (Actin FS) Sodium Potassium Chloride Carbon Dioxide Anion Gap BUN Creatinine Est GFR (CKD-EPI)AfAm Est GFR (CKD-EPI)NonAf Random Glucose Calcium Phosphorus Magnesium Iron 35 L TIBC 218 L Iron Saturation 16 L Unsaturated IBC 183 L Ferritin 130.6 Total Bilirubin AST ALT Alkaline Phosphatase C-Reactive Protein 4.4 H Total Protein Albumin Prealbumin Urine Color Urine Appearance Urine pH Ur Specific [place] Urine Protein Urine Glucose (UA) Urine Ketones Urine Blood Urine Nitrite Urine Bilirubin Urine Urobilinogen Ur Leukocyte Esterase Vancomycin Pre-Dose 10.0 L Blood Type Antibody Screen 12/05/19 12/05/19 12/06/19 05:35 05:35 07:30 WBC 11.3 H 11.3 H RBC 4.07 4.15 Hgb 10.1 L 10.3 L Hct 31.1 L 31.5 L MCV 76.3 L 75.9 L MCH 24.7 L 24.7 L MCHC 32.4 32.6 RDW 15.3 15.8 H Plt Count 288 295 MPV 7.5 8.0 Absolute Neuts (auto) Neutrophils % Lymphocytes % Monocytes % Eosinophils % Basophils % Nucleated RBC % ESR PT with INR INR PTT (Actin FS) Sodium 145 Potassium 3.4 L Chloride 113 H Carbon Dioxide 26 Anion Gap 5 L BUN 8.9 Creatinine 0.6 Est GFR (CKD-EPI)AfAm 94.99 Est GFR (CKD-EPI)NonAf 81.95 Random Glucose 111 H Calcium 7.9 L Phosphorus Magnesium 2.0 Iron TIBC Iron Saturation Unsaturated IBC Ferritin Total Bilirubin 0.3 AST 12 L ALT 18 Alkaline Phosphatase 53 C-Reactive Protein Total Protein 5.3 L Albumin 2.1 L Prealbumin Urine Color Urine Appearance Urine pH Ur Specific [place] Urine Protein Urine Glucose (UA) Urine Ketones Urine Blood Urine Nitrite Urine Bilirubin Urine Urobilinogen Ur Leukocyte Esterase Vancomycin Pre-Dose Blood Type Antibody Screen 12/06/19 12/07/19 12/07/19 07:30 13:24 13:24 WBC 13.2 H RBC 4.24 Hgb 10.4 L Hct 32.6 MCV 77.0 L MCH 24.5 L MCHC 31.8 L RDW 15.6 Plt Count 298 MPV 8.0 Absolute Neuts (auto) 11.3 H Neutrophils % 85.3 H Lymphocytes % 8.0 D Monocytes % 4.4 Eosinophils % 1.8 Basophils % 0.5 Nucleated RBC % 0 ESR PT with INR INR PTT (Actin FS) Sodium 147 H 146 H Potassium 3.3 L 3.8 Chloride 113 H 113 H Carbon Dioxide 29 27 Anion Gap 5 L 6 L BUN 8.2 13.4 Creatinine 0.7 0.7 Est GFR (CKD-EPI)AfAm 90.29 90.29 Est GFR (CKD-EPI)NonAf 77.90 77.90 Random Glucose 113 H 124 H Calcium 8.5 8.4 L Phosphorus Magnesium Iron TIBC Iron Saturation Unsaturated IBC Ferritin Total Bilirubin AST ALT Alkaline Phosphatase C-Reactive Protein Total Protein Albumin Prealbumin Urine Color Urine Appearance Urine pH Ur Specific [place] Urine Protein Urine Glucose (UA) Urine Ketones Urine Blood Urine Nitrite Urine Bilirubin Urine Urobilinogen Ur Leukocyte Esterase Vancomycin Pre-Dose Blood Type Antibody Screen Discharge Medications Medication Instructions Recorded Acetaminophen [Tylenol 1,000 mg PO DAILY 11/30/19 .Extra-Strength -] Acetaminophen [Tylenol .Regular 325 mg PO Q6H PRN 11/30/19 Strength -] Ascorbate Calcium [Vitamin C] 500 mg PO DAILY 11/30/19 Calcium Carbonate/Vitamin D3 1 each PO DAILY 11/30/19 [Calcium 500 + Vit D Caplet] Collagenase Clostridium Hist. 1 applic TP DAILY 11/30/19 [Santyl] Latanoprost 0.005% Eye Drops 1 drop OU DAILY 11/30/19 [Xalatan 0.005% Eye Drops -] Multivitamin [One-Daily 1 each PO DAILY 11/30/19 Multi-Vitamin] Amino Acids/Protein Hydrolys 30 ml PO BID@0800,1730 packet 12/07/19 [Prosource No Carb Liquid Pkt] Ascorbic Acid [Vitamin C -] 250 mg PO DAILY tablet 12/07/19 Docusate Liquid [Colace Liquid -] 100 mg PO DAILY PRN ud 12/07/19 Ferrous Sulfate [Feosol] 300 mg PO DAILY #0 udc 12/07/19 Zinc Sulfate [Orazinc -] 220 mg PO DAILY capsule 12/07/19 Amoxicillin/Potassium Clav 1 each PO BID #12 tablet 12/08/19 [Augmentin 875-125 Tablet] ASSESSMENT AND PLAN: 88 year old female with history of Advanced Dementia (bed bound, non-verbal at baseline), HTN, HLD, Schizophrenia, Osteoporosis, and sacral decubitus ulcer presents with ulcer infection. 1. Acute Infection Stage IV Decubitus Ulcer, fever resolved. POD 7 s/p excisional debridement Wound Cx mixed juany - Ecoli, Klebsiella, Proteus. Received IV Zosyn - transitioned to oral Augmentin for 7 days as per ID. PICC removed. Medically stable for transfer to [facility] with ongoing wound vac/wound care. 2. Functional Quadriplegia sec to Advanced Dementia Fully dependent for ADLs For return to SNF. 3. Chronic Anemia, iron deficiency - continue Ferrous Sulfate supplementation. 4. Hypokalemia - repleted. Medically optimized for discharge back to SNF.
--- NOTE | 2019-12-21 13:13 | OP ---
DATE OF OPERATION: 12/02/2019 PREOPERATIVE DIAGNOSIS: Stage IV necrotic sacral ulcer. POSTOPERATIVE DIAGNOSIS: Stage IV necrotic sacral ulcer. OPERATION: Excisional debridement, sacral ulcer, skin, subcutaneous tissue, muscle. FINDINGS: Necrotic tissue sent to Pathology. SURGEON: Connor Mahmood DO ANESTHESIA: Fractional. BLOOD LOSS: 10 mL. INDICATIONS: Patient is an 88-year-old female that comes from [facility] with a stage IV necrotic ulcer that is foul smelling. She had a fever in the senior living and was transferred to the ER at [facility]. Upon evaluation it was decided that she would need an excisional debridement. Infectious Disease saw her and started her on antibiotics. Patient was consented for the procedure, understanding all risks, benefits and alternatives. DESCRIPTION OF PROCEDURE: The patient was then brought to the operating room. Once in the operating room she was laid on the operating table in a supine manner and then turned on her left side down. We then prepped and draped the sacral area using Betadine solution. We then went ahead and injected 20 mL of lidocaine 1% in the area. We then went and took a No. 15 blade and excised all the necrotic tissue in the ulcer. Bovie electrocautery was used to control hemostasis. All the necrotic tissue was sent out to Pathology. Once we got down through the cleaned necrotic tissue and we were able to exit using a 15 blade we excised necrotic muscle as well. That was excised and sent to Pathology. Bovie electrocautery was used to control hemostasis. We then irrigated the wound capaciously. We then took a wet Kerlix and we packed it in the wound; 4 x 4's and tape were placed. Patient tolerated the procedure with no complications. Patient transferred to PACU in stable condition. CONNOR MAHMOOD DO MOTOR GENERATOR SET OPERATOR/[id number]
== END 2019-12-09 17:02 | DRG 579 ==
LOC: JER 11:33 → JERBED 13:23 → J8W 16:03
PROVIDERS: ADMIT Internal Medicine
PROC: 0KBP0ZZ Excision of Left Hip Muscle, Open Approach (ICD-10-PCS; principal; 2019-12-02 11:00)
DX: L89.154 Pressure ulcer of sacral region, stage 4 (principal); R53.2 Functional quadriplegia; E87.0 Hyperosmolality and hypernatremia; I10 Essential (primary) hypertension; E78.5 Hyperlipidemia, unspecified; F20.9 Schizophrenia, unspecified; M81.0 Age-related osteoporosis without current pathological fracture; F03.90 Unspecified dementia, unspecified severity, without behavioral disturbance, psychotic disturbance, mood disturbance, and anxiety; E87.8 Other disorders of electrolyte and fluid balance, not elsewhere classified; D50.0 Iron deficiency anemia secondary to blood loss (chronic); E87.6 Hypokalemia; R50.9 Fever, unspecified; L08.89 Other specified local infections of the skin and subcutaneous tissue; B96.20 Unspecified Escherichia coli [E. coli] as the cause of diseases classified elsewhere; B96.4 Proteus (mirabilis) (morganii) as the cause of diseases classified elsewhere; B96.1 Klebsiella pneumoniae [K. pneumoniae] as the cause of diseases classified elsewhere; Z74.01 Bed confinement status
CPT/HCPCS: 36415; 71045-TC-FY; 80048; 80053; 81003; 82728; 83540; 83550; 83735; 84100; 84134; 85025; 85027; 85610; 85651; 85730; 86140; 86850; 86900; 86901; 87040; 87070; 87086; 87186; 87205; 88304-TC; 93005; 93010; 94760; 97161-GP; 99283-25; G0480; J1644; J7030